=== PATIENT | male | born 1965 | race Caucasian/White ===

== ENCOUNTER 2016-07-05 15:59 | Emergency (ER) | payer BC ==
[2016-07-05 16:12] VITALS: TEMP 99
[2016-07-05] MEDS ORDERED: SODIUM CHLORIDE 0.9% 1,000 ML IV STA ×2 (16:27)
[2016-07-05] MEDS ORDERED: ONDANSETRON 4 MG/2 ML VIAL IVP STA (16:27)
[2016-07-05] MEDS ORDERED: HYDROmorphone 1 MG/ML 1 ML SYRINGE IVP STA (16:27)
[2016-07-05] MEDS ORDERED: RX INFO: IV CONTRAST WAS GIVEN 1 EACH MISC MISCELLANE PRN (16:28)
[2016-07-05 16:56] LABS: Basophils % (A) 0 %; CH 30.7; CHCM 34.7; Eosinophils # (A) 0.3 k/uL (0-0.7); Eosinophils % (A) 2 %; HCT 49.7 % (39.0-53.0); HDW 2.63; HGB 17.1 gm/dL (13.0-17.5); Luc # (Auto) 0.55; Luc % (Auto) 4; Lymphocytes # (A) 1.9 k/uL (1.0-4.8); Lymphocytes % (A) 14 %; MCH 30.7 pg (25.0-35.0); MCHC 34.4 g/dL (31.0-37.0); MCV 89.1 fL (80.0-100.0); Mean Platelet Volume 8.3; Monocytes # (A) 1.1 k/uL (0-1.0); Monocytes % (A) 8 %; Neutrophils % (A) 72 %; RBC 5.58 m/uL (4.30-5.90); RDW 13.8 % (11.5-15.5); WBC 13.9 k/uL (3.8-10.6); WBC (Perox) 14.04
[2016-07-05 17:07] LABS: Amorphous Sediment,Urine Rare /hpf; Appearance,Urine Clear (Clear); Bilirubin,Urine Negative (Negative); Glucose,Urine (UA) Negative (Negative); Ketones,Urine Negative (Negative); Leukocyte Esterase,Urine Negative (Negative); Mucus,Urine Few /hpf; Nitrite,Urine Negative (Negative); PH, Urine 5.5 (5.0-8.0); Particle Count 9377; Protein,Urine 1+ (Negative); RBC,Urine 3 /hpf (0-5); UA Billing (MACRO vs. MICRO) MICRO; WBC,Urine 1 /hpf (0-5)
[2016-07-05 17:22] LABS: ALT 35 U/L (21-72); AST 39 U/L (17-59); Alkaline Phosphatase 69 U/L (38-126); Amylase 49 U/L (30-110); Anion Gap 13 mmol/L; Blood Urea Nitrogen 17 mg/dL (9-20); Calcium 9.3 mg/dL (8.4-10.2); Carbon Dioxide 19 mmol/L (22-30); Chloride 106 mmol/L (98-107); Glucose 143 mg/dL (74-99); Non-African American GFR(MDRD) >60 (>60 ml/min/1.73 sqM); Sodium 138 mmol/L (137-145); Total Bilirubin 0.7 mg/dL (0.2-1.3); Total Protein 7.1 g/dL (6.3-8.2)
[2016-07-05 17:25] LABS: Potassium 4.8 mmol/L (3.5-5.1)
[2016-07-05 17:37] VITALS: PULSE 70; RESP 18
--- NOTE | 2016-07-05 17:42 | CT ---
EXAMINATION TYPE: CT abdomen pelvis w con DATE OF EXAM: 07/05/2016 5:27 PM COMPARISON: NONE HISTORY: Diarrhea and generalized abdominal pain x 3-[address] DLP: 1521.80 mGycm Automated exposure control for dose reduction was used. TECHNIQUE: Helical acquisition of images was performed from the lung bases through the pelvis. CONTRAST: Performed without Oral Contrast and with IV Contrast, patient injected with 100 mL of Omnipaque 300. FINDINGS: Lung bases are clear. There is no pleural effusion. Heart size is normal. Liver spleen pancreas appear normal. There is no adrenal mass. Bile ducts are not dilated. Gallbladde r appears normal. There is normal contrast opacification of the kidneys. There is no hydronephrosis. There is no retroperitoneal adenopathy. There is evidence of wall thickening involving the right colo n and the transverse colon. There are a few sigmoid diverticula. There is no evidence of diverticulit is. There is mild wall thickening also in the terminal ileum. Appendix appears normal. The bladder distends smoothly. I see no bony destructive process. There is no sign of a pelvic mass. IMPRESSION: THERE IS WALL THICKENING INVOLVING THE RIGHT COLON AND DISTAL ILEUM THAT IS SUGGESTIVE OF INFLAMMATOR Y BOWEL DISEASE. NO ABSCESS. NORMAL APPENDIX.
--- NOTE | 2016-07-05 17:47 | ED ---
General Adult HPI - General Chief complaint: Nausea/Vomiting/Diarrhea Stated complaint: Abd Pain Time Seen by Provider: 07/05/16 16:16 Source: patient, family, RN notes reviewed Mode of arrival: ambulatory Limitations: no limitations - History of Present Illness Initial comments: Patient 15-year-old male who presents emergency room today with a chief complaint of symptoms of abdominal pain with nausea and vomiting over the last 4 days. Patient admits to some lower abdominal pain cramping in nature. States that when he states symptoms seem to increase and has increased diarrhea. He denies any other complaints. Patient denies any recent fever, chills, shortness of breath, chest pain, back pain, numbness or tingling, dysuria or hematuria, constipation or diarrhea, headaches or visual changes, or any other complaints. - Related Data Previous Rx's Medication Instructions Recorded Ciprofloxacin HCl [Cipro] 500 mg PO Q12HR #10 day 07/05/16 Allergies Allergy/AdvReac Type Severity Reaction Status Date / Time Penicillins Allergy Unknown Verified 07/05/16 16:08 Review of Systems ROS Statement: Those systems with pertinent positive or pertinent negative responses have been documented in the HPI. ROS Other: All systems not noted in ROS Statement are negative. Past Medical History Past Medical History: Coronary Artery Disease (CAD), Hyperlipidemia, Hypertension History of Any Multi-Drug Resistant Organisms: None Reported Past Surgical History: Coronary Bypass/CABG Past Psychological History: Depression Smoking Status: Current every day smoker Past Alcohol Use History: None Reported Past Drug Use History: None Reported General Exam - General Exam Comments Initial Comments: General: The patient is awake and alert, in no distress, and does not appear acutely ill. Eye: Pupils are equal, round and reactive to light, extra-ocular movements are intact. No nystagmus. There is normal conjunctiva bilaterally. No signs of icterus. Ears, nose, mouth and throat: There are moist mucous membranes and no oral lesions. Neck: The neck is supple, there is no tenderness or JVD. Cardiovascular: There is a regular rate and rhythm. No murmur, rub or gallop is appreciated. Respiratory: Lungs are clear to auscultation, respirations are non-labored, breath sounds are equal. No wheezes, stridor, rales, or rhonchi. Gastrointestinal: Normal appearance them. Normal bowel sounds. Abdomen soft on palpation. Mild tenderness to lower quadrant. No rebound tenderness. No Guarding. No CVA tenderness. Musculoskeletal: Normal ROM, no tenderness. Strength 5/5. Sensation intact. Pulses equal bilaterally 2+. Neurological: A&O x 3. CN II-XII intact, There are no obvious motor or sensory deficits. Coordination appears grossly intact. Speech is normal. Skin: Skin is warm and dry and no rashes or lesions are noted. Psychiatric: Cooperative, appropriate mood & affect, normal judgment. Limitations: no limitations Course Vital Signs 07/05/16 07/05/16 16:08 17:37 Temperature 99 F Pulse Rate 82 70 Respiratory 16 18 Rate Blood Pressure 134/86 142/70 O2 Sat by Pulse 95 99 Oximetry Medical Decision Making - Medical Decision Making Patient denies any recent fever, chills, shortness of breath, chest pain, back pain, abdominal pain, nausea or vomiting, numbness or tingling, dysuria or hematuria, constipation or diarrhea, headaches or visual changes, or any other complaints. - Lab Data Result diagrams: 07/05/16 16:40 07/05/16 16:40 Lab Results 07/05/16 07/05/16 07/05/16 Range/Units 16:40 16:40 16:40 WBC 13.9 H (3.8-10.6) k/uL RBC 5.58 (4.30-5.90) m/uL Hgb 17.1 (13.0-17.5) gm/dL Hct 49.7 (39.0-53.0) % MCV 89.1 (80.0-100.0) fL MCH 30.7 (25.0-35.0) pg MCHC 34.4 (31.0-37.0) g/dL RDW 13.8 (11.5-15.5) % Plt Count 125 L (150-450) k/uL Neutrophils % 72 % Lymphocytes % 14 % Monocytes % 8 % Eosinophils % 2 % Basophils % 0 % Neutrophils # 10.0 H (1.3-7.7) k/uL Lymphocytes # 1.9 (1.0-4.8) k/uL Monocytes # 1.1 H (0-1.0) k/uL Eosinophils # 0.3 (0-0.7) k/uL Basophils # 0.0 (0-0.2) k/uL Sodium 138 (137-145) mmol/L Potassium 4.8 (3.5-5.1) mmol/L Chloride 106 (98-107) mmol/L Carbon Dioxide 19 L (22-30) mmol/L Anion Gap 13 mmol/L BUN 17 (9-20) mg/dL Creatinine 0.80 (0.66-1.25) mg/dL Est GFR (MDRD) Af Amer >60 (>60 ml/min/1.73 sqM) Est GFR (MDRD) Non-Af >60 (>60 ml/min/1.73 sqM) Glucose 143 H (74-99) mg/dL Calcium 9.3 (8.4-10.2) mg/dL Total Bilirubin 0.7 (0.2-1.3) mg/dL AST 39 (17-59) U/L ALT 35 (21-72) U/L Alkaline Phosphatase 69 (38-126) U/L Total Protein 7.1 (6.3-8.2) g/dL Albumin 4.2 (3.5-5.0) g/dL Amylase 49 (30-110) U/L Lipase 109 (23-300) U/L Urine Color Yellow Urine Appearance Clear (Clear) Urine pH 5.5 (5.0-8.0) Ur Specific [place] 1.030 (1.001-1.035) Urine Protein 1+ H (Negative) Urine Glucose (UA) Negative (Negative) Urine Ketones Negative (Negative) Urine Blood Negative (Negative) Urine Nitrite Negative (Negative) Urine Bilirubin Negative (Negative) Urine Urobilinogen 2.0 (<2.0) mg/dL Ur Leukocyte Esterase Negative (Negative) Urine RBC 3 (0-5) /hpf Urine WBC 1 (0-5) /hpf Amorphous Sediment Rare H (None) /hpf Hyaline Casts 4 H (0-2) /lpf Urine Mucus Few H (None) /hpf Disposition Clinical Impression: Colitis Disposition: HOME SELF-CARE Condition: Good Instructions: Colitis (ED) Additional Instructions: Patient's CT of the abdomen and pelvis reviewed and does show wall thickening involving the right colon and distal ileum that is suggestive of inflammatory bowel disease. No abscess. Normal appendix. No evidence for diverticulitis. Patient's labs reviewed and does show elevated white count 13.9. Patient denies any recent travel. Patient will be started on a antibiotic of Cipro. He is advised close follow-up with the family doctor over the next 2 days. Advised return to emergency room if any symptoms increase or worsen or for any other concerns. Patient states understanding and is in agreement. Prescriptions: Ciprofloxacin HCl [Cipro] 500 mg PO Q12HR #10 day Referrals: Ernesto Hinojosa MD [Primary Care Provider] - 1-2 days Time of Disposition: 18:06
[2016-07-05 18:07] VITALS: BP 140/79
== END 2016-07-05 18:15 | disposition home or self-care (01) ==
LOC: EC 15:59
DX: K52.9 Noninfective gastroenteritis and colitis, unspecified (principal); R11.2 Nausea with vomiting, unspecified; F17.200 Nicotine dependence, unspecified, uncomplicated; Z88.0 Allergy status to penicillin
CPT/HCPCS: 36415; 80053; 82150; 83690; 85025; 81001; 74177; 99284; 96374; 96375; 96361; J2405; J1170; Q9967

== ENCOUNTER 2016-09-27 14:08 | Inpatient (IN) | payer BC ==
[2016-09-27] MEDS ORDERED: ASPIRIN 81 MG CHEW PO STA (14:29)
[2016-09-27] MEDS ORDERED: NITROGLYCERIN OINT 1 INCH/GM PACKET TOPICAL STA (14:29)
--- NOTE | 2016-09-27 14:33 | ED ---
General Adult HPI - General Chief complaint: Chest Pain Stated complaint: chest pain Time Seen by Provider: 09/27/16 14:20 Source: patient, RN notes reviewed Mode of arrival: ambulatory Limitations: no limitations - History of Present Illness Initial comments: This is a 51-year-old male who presents emergency department with past medical history of hypertension high cholesterol and bypass surgery. Patient also states she continues to smoke. Patient comes in today because he had a weeklong history of intermittent chest pressure patient states it lasts about an hour and then goes away. Patient states it does seem to get some radiation to his hands. Patient states he also had some episodes of significant diaphoresis. Patient states the symptoms are getting worse we decided come in today. Patient denies any lightheadedness dizziness or near syncopal episode. Patient denies any numbness or weakness. Patient denies any palpitations. Patient denies being short of breath or having any difficulty breathing. Patient denies abdominal pain patient denies nausea vomiting or diarrhea. Patient denies any recent fever chills or cough. - Related Data Home Medications Medication Instructions Recorded Confirmed Aspirin EC [Ecotrin Low Dose] 81 mg PO ONCE PRN 09/27/16 09/27/16 Enalapril [Vasotec] 10 mg PO BID@0700,1900 09/27/16 09/27/16 Ezetimibe [Zetia] 10 mg PO HS@1900 09/27/16 09/27/16 Metoprolol Succinate (ER) [Toprol 100 mg PO BID@0700,1900 09/27/16 09/27/16 Xl] Simvastatin [Zocor] 40 mg PO DAILY@0700 09/27/16 09/27/16 Allergies Allergy/AdvReac Type Severity Reaction Status Date / Time Penicillins Allergy Unknown Verified 09/27/16 14:38 Childhood Review of Systems ROS Statement: Those systems with pertinent positive or pertinent negative responses have been documented in the HPI. ROS Other: All systems not noted in ROS Statement are negative. Past Medical History Past Medical History: Coronary Artery Disease (CAD), Hyperlipidemia, Hypertension History of Any Multi-Drug Resistant Organisms: None Reported Past Surgical History: Coronary Bypass/CABG Past Psychological History: Depression Smoking Status: Current every day smoker Past Alcohol Use History: None Reported Past Drug Use History: None Reported General Exam - General Exam Comments Initial Comments: GENERAL: Patient is well-developed and well-nourished. Patient is nontoxic and well- hydrated and is in no acute distress. ENT: Neck is soft and supple. No significant lymphadenopathy is noted. Oropharynx is clear. Moist mucous membranes. Neck has full range of motion without eliciting any pain. EYES: The sclera were anicteric and conjunctiva were pink and moist. Extraocular movements were intact and pupils were equal round and reactive to light. Eyelids were unremarkable. PULMONARY: Unlabored respirations. Good breath sounds bilaterally. No audible rales rhonchi or wheezing was noted. CARDIOVASCULAR: There is a regular rate and rhythm without any murmurs gallops or rubs. ABDOMEN: Soft and nontender with normal bowel sounds. No palpable organomegaly was noted. There is no palpable pulsatile mass. SKIN: Skin is clear with no lesions or rashes and otherwise unremarkable. NEUROLOGIC: Patient is alert and oriented x3. Cranial nerves II through XII are grossly intact. Motor and sensory are also intact. Normal speech, volume and content. Symmetrical smile. MUSCULOSKELETAL: Normal extremities with adequate strength and full range of motion. No lower extremity swelling or edema. No calf tenderness. LYMPHATICS: No significant lymphadenopathy is noted PSYCHIATRIC: Normal psychiatric evaluation. Normal interpersonal interactions appears functionally intact in deals appropriately with others. No signs of depression. No signs of anxiety. Limitations: no limitations Course Vital Signs 09/27/16 09/27/16 09/27/16 14:18 14:38 14:46 Temperature 97.9 F Pulse Rate 82 83 Respiratory 18 18 18 Rate Blood Pressure 168/88 161/80 O2 Sat by Pulse 96 96 Oximetry 09/27/16 15:17 Temperature Pulse Rate 82 Respiratory 18 Rate Blood Pressure 149/71 O2 Sat by Pulse 95 Oximetry Medical Decision Making - Medical Decision Making EKG shows normal sinus rhythm at 70 bpm ME interval is on a 48 QRS is 94 QT interval 384 QTC is 437 per patient's EKG shows no ST segment elevation or depression or T-wave abnormalities are noted Chest x-ray shows no acute abnormality. I placed the patient on heparin. I spoke with Dr. Hodges admitted the patient I wrote admitting orders to continue the heparin and aspirin and Nitropaste on the floor. - Lab Data Result diagrams: 09/27/16 14:38 09/27/16 14:38 Lab Results 09/27/16 09/27/16 09/27/16 Range/Units 14:38 14:38 14:38 WBC 10.7 H (3.8-10.6) k/uL RBC 5.48 (4.30-5.90) m/uL Hgb 16.7 (13.0-17.5) gm/dL Hct 50.5 (39.0-53.0) % MCV 92.0 (80.0-100.0) fL MCH 30.5 (25.0-35.0) pg MCHC 33.2 (31.0-37.0) g/dL RDW 14.9 (11.5-15.5) % Plt Count 127 L (150-450) k/uL Neutrophils % 55 % Lymphocytes % 30 % Monocytes % 8 % Eosinophils % 3 % Basophils % 1 % Neutrophils # 5.9 (1.3-7.7) k/uL Lymphocytes # 3.1 (1.0-4.8) k/uL Monocytes # 0.8 (0-1.0) k/uL Eosinophils # 0.3 (0-0.7) k/uL Basophils # 0.1 (0-0.2) k/uL PT (9.0-12.0) sec INR (<1.2) APTT (22.0-30.0) sec Sodium 139 (137-145) mmol/L Potassium 4.1 (3.5-5.1) mmol/L Chloride 106 (98-107) mmol/L Carbon Dioxide 20 L (22-30) mmol/L Anion Gap 13 mmol/L BUN 20 (9-20) mg/dL Creatinine 0.80 (0.66-1.25) mg/dL Est GFR (MDRD) Af Amer >60 (>60 ml/min/1.73 sqM) Est GFR (MDRD) Non-Af >60 (>60 ml/min/1.73 sqM) Glucose 131 H (74-99) mg/dL Calcium 9.4 (8.4-10.2) mg/dL Magnesium 1.9 (1.6-2.3) mg/dL Total Bilirubin 0.4 (0.2-1.3) mg/dL AST 38 (17-59) U/L ALT 51 (21-72) U/L Alkaline Phosphatase 76 (38-126) U/L Total Creatine Kinase 235 H (55-170) U/L CK-MB (CK-2) 3.3 H* (0.0-2.4) ng/mL CK-MB (CK-2) Rel Index 1.4 Troponin I <0.012 (0.000-0.034) ng/mL Total Protein 6.9 (6.3-8.2) g/dL Albumin 4.4 (3.5-5.0) g/dL 09/27/16 Range/Units 14:38 WBC (3.8-10.6) k/uL RBC (4.30-5.90) m/uL Hgb (13.0-17.5) gm/dL Hct (39.0-53.0) % MCV (80.0-100.0) fL MCH (25.0-35.0) pg MCHC (31.0-37.0) g/dL RDW (11.5-15.5) % Plt Count (150-450) k/uL Neutrophils % % Lymphocytes % % Monocytes % % Eosinophils % % Basophils % % Neutrophils # (1.3-7.7) k/uL Lymphocytes # (1.0-4.8) k/uL Monocytes # (0-1.0) k/uL Eosinophils # (0-0.7) k/uL Basophils # (0-0.2) k/uL PT 10.4 (9.0-12.0) sec INR 1.0 (<1.2) APTT 23.4 (22.0-30.0) sec Sodium (137-145) mmol/L Potassium (3.5-5.1) mmol/L Chloride (98-107) mmol/L Carbon Dioxide (22-30) mmol/L Anion Gap mmol/L BUN (9-20) mg/dL Creatinine (0.66-1.25) mg/dL Est GFR (MDRD) Af Amer (>60 ml/min/1.73 sqM) Est GFR (MDRD) Non-Af (>60 ml/min/1.73 sqM) Glucose (74-99) mg/dL Calcium (8.4-10.2) mg/dL Magnesium (1.6-2.3) mg/dL Total Bilirubin (0.2-1.3) mg/dL AST (17-59) U/L ALT (21-72) U/L Alkaline Phosphatase (38-126) U/L Total Creatine Kinase (55-170) U/L CK-MB (CK-2) (0.0-2.4) ng/mL CK-MB (CK-2) Rel Index Troponin I (0.000-0.034) ng/mL Total Protein (6.3-8.2) g/dL Albumin (3.5-5.0) g/dL Critical Care Time Critical Care Time: Yes Total Critical Care Time: 35 Disposition Clinical Impression: Unstable angina pectoris Disposition: ADMITTED IP TO THIS HOSP Referrals: Ernesto Hinojosa MD [Primary Care Provider] - 1-2 days Time of Disposition: 15:54
[2016-09-27 14:50] LABS: Basophils # (A) 0.1 k/uL (0-0.2); Basophils % (A) 1 %; CH 31.3; CHCM 34.2; Eosinophils # (A) 0.3 k/uL (0-0.7); Eosinophils % (A) 3 %; HCT 50.5 % (39.0-53.0); HDW 2.45; HGB 16.7 gm/dL (13.0-17.5); Luc # (Auto) 0.45; Luc % (Auto) 4; Lymphocytes # (A) 3.1 k/uL (1.0-4.8); Lymphocytes % (A) 30 %; MCH 30.5 pg (25.0-35.0); MCHC 33.2 g/dL (31.0-37.0); Mean Platelet Volume 9.3; Monocytes # (A) 0.8 k/uL (0-1.0); Monocytes % (A) 8 %; Neutrophils # (A) 5.9 k/uL (1.3-7.7); Neutrophils % (A) 55 %; RBC 5.48 m/uL (4.30-5.90); RDW 14.9 % (11.5-15.5); WBC 10.7 k/uL (3.8-10.6); WBC (Perox) 9.96
[2016-09-27 15:00] LABS: ALT 51 U/L (21-72); AST 38 U/L (17-59); Alkaline Phosphatase 76 U/L (38-126); Anion Gap 13 mmol/L; Blood Urea Nitrogen 20 mg/dL (9-20); Calcium 9.4 mg/dL (8.4-10.2); Carbon Dioxide 20 mmol/L (22-30); Chloride 106 mmol/L (98-107); Glucose 131 mg/dL (74-99); Magnesium 1.9 mg/dL (1.6-2.3); Non-African American GFR(MDRD) >60 (>60 ml/min/1.73 sqM); Partial Thromboplastin Time 23.4 sec (22.0-30.0); Potassium 4.1 mmol/L (3.5-5.1); Prothrombin Time 10.4 sec (9.0-12.0); Sodium 139 mmol/L (137-145); Total Bilirubin 0.4 mg/dL (0.2-1.3); Total Protein 6.9 g/dL (6.3-8.2)
[2016-09-27 15:13] LABS: Creatine Kinase 235 U/L (55-170)
--- NOTE | 2016-09-27 15:18 | XR ---
EXAMINATION TYPE: XR chest 2V DATE OF EXAM: 09/27/2016 COMPARISON: Prior chest x-ray 05/14/2014 HISTORY: Chest pain TECHNIQUE: Frontal and lateral views of the chest are obtained. FINDINGS: There is no focal air space opacity, pleural effusion, or pneumothorax seen. Patient is p ost median sternotomy. There are overlying cardiac leads. Prominent lung volume may be indicative of COPD. There are coronary artery calcifications. The cardiac silhouette size is within normal limits. The osseous structures are intact. IMPRESSION: No acute cardiopulmonary process.
[2016-09-27 15:25] LABS: Troponin I <0.012 ng/mL (0.000-0.034)
[2016-09-27 15:28] LABS: Creatine Kinase MB 3.3 ng/mL (0.0-2.4)
[2016-09-27] MEDS ORDERED: HEPARIN SODIUM,PORCINE 5,000 UNIT/ML 1 ML VIAL IV ONE (15:54)
[2016-09-27] MEDS ORDERED: NITROGLYCERIN SL TABS 0.4 MG TAB SUBLINGUAL PRN (15:56)
[2016-09-27] MEDS: HEPARIN SODIUM,PORCINE/D5W PMX 25,000 UNIT in DEXTROSE/WATER 1 500ML.BAG IV SCH (16:38)
[2016-09-27 17:15] VITALS: BMI 36.1
[2016-09-27] MEDS: METOPROLOL SUCCINATE (ER) 100 MG TAB.ER.24H PO SCH (18:45)
[2016-09-27] MEDS: EZETIMIBE 10 MG TAB PO SCH (18:45)
[2016-09-27 22:09] LABS: Creatine Kinase 169 U/L (55-170)
[2016-09-27 22:21] LABS: Troponin I <0.012 ng/mL (0.000-0.034)
[2016-09-27 22:24] LABS: Creatine Kinase MB 2.6 ng/mL (0.0-2.4)
[2016-09-28 04:54] LABS: Creatine Kinase 149 U/L (55-170)
[2016-09-28 05:07] LABS: Troponin I <0.012 ng/mL (0.000-0.034)
[2016-09-28 05:10] LABS: Cholesterol 123 mg/dL (<200); HDL Cholesterol 40 mg/dL (40-60)
[2016-09-28 05:11] LABS: Creatine Kinase MB 2.5 ng/mL (0.0-2.4)
[2016-09-28] MEDS ORDERED: ATORVASTATIN 80 MG TAB PO STA (08:54)
[2016-09-28] MEDS ORDERED: SODIUM CHLORIDE 0.9% 1,000 ML in EMPTY BAG 1 BAG IV ONE ×2 (08:54→13:57)
[2016-09-28] MEDS ORDERED: ASPIRIN 325 MG TAB PO STA (08:54)
[2016-09-28] MEDS ORDERED: NITROGLYCERIN SL TABS 0.4 MG TAB SUBLINGUAL PRN (08:54)
[2016-09-28] MEDS: LISINOPRIL 20 MG TAB PO SCH (09:03)
[2016-09-28] MEDS: METOPROLOL SUCCINATE (ER) 100 MG TAB.ER.24H PO SCH ×2 (09:03→20:03)
[2016-09-28 09:06] LABS: Aty Lym Flag Slight; CHCM 32.7; HCT 47.7 % (39.0-53.0); HDW 2.46; MCH 30.9 pg (25.0-35.0); MCHC 33.6 g/dL (31.0-37.0); MCV 92.2 fL (80.0-100.0); Mean Platelet Volume 9.8; RBC 5.18 m/uL (4.30-5.90); RDW 14.1 % (11.5-15.5); WBC 9.4 k/uL (3.8-10.6); WBC (Perox) 9.14
[2016-09-28 09:07] LABS: ALT 45 U/L (21-72); AST 29 U/L (17-59); Alkaline Phosphatase 76 U/L (38-126); Anion Gap 8 mmol/L; Blood Urea Nitrogen 19 mg/dL (9-20); Carbon Dioxide 24 mmol/L (22-30); Chloride 106 mmol/L (98-107); Glucose 106 mg/dL (74-99); Non-African American GFR(MDRD) >60 (>60 ml/min/1.73 sqM); Potassium 4.7 mmol/L (3.5-5.1); Sodium 138 mmol/L (137-145); Total Bilirubin 0.3 mg/dL (0.2-1.3); Total Protein 5.9 g/dL (6.3-8.2)
[2016-09-28] MEDS ORDERED: IV FLUID CONTINUATION 1,000 ML IV ONE (09:20)
[2016-09-28 09:41] LABS: Add Differential Manual Differential
[2016-09-28 09:47] LABS: Nucleated Red Blood Cells 0 /100 WBC (0-0); Total Cells Counted 100
[2016-09-28 09:49] LABS: Manual Review Performed; RBC Morphology Normal
[2016-09-28] MEDS ORDERED: fentaNYL (PF) 50 MCG/ML 2 ML AMP IV ONE (10:08)
[2016-09-28] MEDS: MIDAZOLAM 2 MG/2 ML VIAL IV ONE ×2 (10:09→10:54)
[2016-09-28] MEDS ORDERED: LIDOCAINE 2% INJ 20 MG/ML SQ ONE (10:13)
[2016-09-28] MEDS ORDERED: NITROGLYCERIN SL TABS 0.4 MG TAB SUBLINGUAL ONE (10:28)
[2016-09-28] MEDS ORDERED: RX INFO: IV CONTRAST WAS GIVEN 1 EACH MISC MISCELLANE PRN (11:23)
--- NOTE | 2016-09-28 11:24 | P.HPIM ---
History of Present Illness H&P Date: 09/28/16 Chief Complaint: Chest pain This is a 51-year-old male with a known history of coronary disease with previous coronary bypass grafting surgery, hyperlipidemia, hypertension and nicotine dependence. Patient presents to the emergency room with intermittent chest pressure for the past week. Patient reports that symptoms may last for about 15 minutes he stands up and stretches and they go away. He has had some episodes of diaphoresis. He also reports having some numbness in both arms at times with the chest pressure. He denies any dizziness lightheadedness, any fevers or chills. Denies any cough, denies any nausea or vomiting. Denies any bowel movement changes or urinary symptoms. Patient has been admitted to the observation unit, cardiology has been consult was any scheduled for heart catheterization today. Troponins are negative 3 EKG normal sinus rhythm and chest x-rays negative. Review of Systems Please refer to HPI otherwise unremarkable Past Medical History Past Medical History: Coronary Artery Disease (CAD), Hyperlipidemia, Hypertension History of Any Multi-Drug Resistant Organisms: None Reported Past Surgical History: Coronary Bypass/CABG Additional Past Surgical History / Comment(s): 4 vessel CABG- 2011? Past Psychological History: Anxiety, Depression Smoking Status: Current every day smoker Past Alcohol Use History: None Reported Additional Past Alcohol Use History / Comment(s): pt states he smokes about 6 cigs a day. Past Drug Use History: None Reported - Past Family History Mother Family Medical History: Coronary Artery Disease (CAD), Diabetes Mellitus Father Family Medical History: Coronary Artery Disease (CAD) Medications and Allergies Home Medications Medication Instructions Recorded Confirmed Type Aspirin EC [Ecotrin Low Dose] 81 mg PO ONCE PRN 09/27/16 09/27/16 History Enalapril [Vasotec] 10 mg PO BID@0700,1900 09/27/16 09/27/16 History Ezetimibe [Zetia] 10 mg PO HS@189909/27/16 09/27/16 History Metoprolol Succinate (ER) [Toprol 100 mg PO BID@0700,1900 09/27/16 09/27/16 History Xl] Simvastatin [Zocor] 40 mg PO DAILY@0700 09/27/16 09/27/16 History Allergies Allergy/AdvReac Type Severity Reaction Status Date / Time Penicillins Allergy Unknown Verified 09/27/16 14:38 Childhood Physical Exam Vitals: Vital Signs Temp Pulse Pulse Resp BP BP Pulse Ox 09/28/16 09:13 98 F 62 16 138/85 95 09/28/16 07:57 98.6 F 68 16 138/85 95 09/28/16 04:00 63 16 116/71 98 09/28/16 03:28 74 16 09/28/16 00:00 98.5 F 66 16 136/71 96 09/27/16 20:00 98.1 F 65 16 106/64 98 09/27/16 17:37 69 12 09/27/16 17:05 98.3 F 69 12 118/69 94 L 09/27/16 16:44 98.0 F 74 18 139/67 95 09/27/16 15:47 80 18 142/59 96 09/27/16 15:17 82 18 149/71 95 09/27/16 14:46 83 18 161/80 96 09/27/16 14:38 18 09/27/16 14:18 97.9 F 82 18 168/88 96 Intake and Output 09/27/16 09/28/16 09/28/16 22:59 06:59 14:59 Intake Total 113.667 Balance 113.667 Intake: Intake, IV Titration 113.667 Amount Heparin Sodium,Porcine/ 113.667 D5w Pmx 25,000 unit In Dextrose/Water 1 500ml. bag @ 9 UNITS/KG/HR 20 mls/hr IV .Q24H [facility] Rx#: [id number] Other: Voiding Method Toilet Toilet Toilet # Voids 2 1 # Bowel Movements 1 Weight 109.5 kg Head normocephalic Neck supple Lungs clear to auscultation bilaterally no wheezing or crackles Heart regular rate and rhythm S1-S2, no rub or gallop Abdomen is soft nontender nondistended positive bowel sounds no hepatosplenomegaly Extremities no edema Neuro alert and orientated to 3 Results CBC & Chem 7: 09/28/16 03:39 09/28/16 03:39 Labs: Abnormal Lab Results - Last 24 Hours (Table) 09/27/16 09/27/16 09/27/16 Range/Units 14:38 14:38 14:38 WBC 10.7 H (3.8-10.6) k/uL Plt Count 127 L (150-450) k/uL APTT (22.0-30.0) sec Carbon Dioxide 20 L (22-30) mmol/L Glucose 131 H (74-99) mg/dL Total Creatine Kinase 235 H (55-170) U/L CK-MB (CK-2) 3.3 H* (0.0-2.4) ng/mL Total Protein (6.3-8.2) g/dL Triglycerides (<150) mg/dL 09/27/16 09/27/16 09/28/16 Range/Units 21:31 21:31 03:39 WBC (3.8-10.6) k/uL Plt Count (150-450) k/uL APTT 43.9 H (22.0-30.0) sec Carbon Dioxide (22-30) mmol/L Glucose (74-99) mg/dL Total Creatine Kinase (55-170) U/L CK-MB (CK-2) 2.6 H* 2.5 H* (0.0-2.4) ng/mL Total Protein (6.3-8.2) g/dL Triglycerides (<150) mg/dL 09/28/16 09/28/16 09/28/16 Range/Units 03:39 03:39 03:39 WBC (3.8-10.6) k/uL Plt Count 115 L (150-450) k/uL APTT 48.5 H (22.0-30.0) sec Carbon Dioxide (22-30) mmol/L Glucose (74-99) mg/dL Total Creatine Kinase (55-170) U/L CK-MB (CK-2) (0.0-2.4) ng/mL Total Protein (6.3-8.2) g/dL Triglycerides 185 H (<150) mg/dL 09/28/16 Range/Units 03:39 WBC (3.8-10.6) k/uL Plt Count (150-450) k/uL APTT (22.0-30.0) sec Carbon Dioxide (22-30) mmol/L Glucose 106 H (74-99) mg/dL Total Creatine Kinase (55-170) U/L CK-MB (CK-2) (0.0-2.4) ng/mL Total Protein 5.9 L (6.3-8.2) g/dL Triglycerides (<150) mg/dL Thrombosis Risk Factor Assmnt - Choose All That Apply Any of the Below Risk Factors Present?: Yes Each Factor Represents 1 point: Age 41-60 years, Obesity (BMI >25) Other Risk Factors: No Other congenital or acquired thrombophilia - If yes, enter type in comment: No Thrombosis Risk Factor Assessment Total Risk Factor Score: 2 Thrombosis Risk Factor Assessment Level: Low Risk Assessment and Plan Plan: 1. Chest pain: Patient scheduled for heart catheterization today. Chest x- rays negative. EKG normal sinus rhythm troponins are negative 3. Cardiology increased aspirin to a full 325 mg daily and give 1 dose of this Lipitor 80. Patient started on IV heparin in the emergency room 2. Essential hypertension: Blood pressure stable 3. Hyperlipidemia continue Lipitor 4. History of coronary artery disease and previous coronary bypass surgery 5. Nicotine dependence: Discussed smoking cessation. Patient received nicotine patch. He smokes about 6-8 cigarettes a day DVT prophylaxis subcu heparin Time with Patient: Greater than 30 (Greater than 50% of the total time spent in counseling and coordination of care.I performed an examination of the patient and discussed their management with the physician Curtain Roller Assembler. I have reviewed the Physician Curtain Roller Assembler's notes and agree with the documented findings and plan of care)
[2016-09-28] MEDS ORDERED: IOHEXOL 350 MG/ML 125ML BOTTLE INJ ONE (11:29)
--- NOTE | 2016-09-28 11:36 | P.PCN ---
Date of Procedure: 09/28/16 Preoperative Diagnosis: Unstable angina Postoperative Diagnosis: Diffuse coronary artery disease with a critical lesions in the midcircumflex and also first diagonal Procedure(s) Performed: Left heart catheterization with aortography and also selective injection of the 3 vein grafts and also PRIDE graft. Implants: Indications for Procedure: Operative Findings: Description of Procedure: HISTORY: This is a 51-year-old gentleman with history of ischemic heart disease with a previous stent placement of the left anterior descending and also circumflex who had coronary bypass surgery in 2011 because of significant proximal LAD lesion, significant disease involving the distal LAD and also total of RCA. Patient presumably had five-vessel bypass with PRIDE graft to the mid LAD and a vein graft to the distal LAD, vein graft to the distal circumflex , vein graft to the intermediate and also vein graft to the RCA. Patient is now admitted to the hospital with chest pain sized for burning sensation. EKGs were negative and cardiac enzymes are negative. Patient is advised to have cardiac catheterization for definitive diagnosis. He was explained the risks and benefits of the procedure which she fully understood and accepted CONSENT:I have discussed the risks, benefits and alternative therapies for the above-mentioned procedure and for both sedation/analgesia as well as necessary blood product administration, if indicated, as they pertain to this patient. The patient has indicated understanding and acceptance of the risks and procedures discussed. PROCEDURE: Patient was brought to the lab in a fasting state. Patient was given some IV sedation. The right groin is infiltrated with lidocaine and right femoral artery was entered using Seldinger technique. A 6-Czech catheter was left in place and selective coronary arteriography and left ventriculography was performed. Patient tolerated the procedure well. Femoral angiogram was performed and Angio-Seal was applied for hemostasis. No immediate complications were noted and patient was transferred to [facility] in a stable condition Conscious Sedation: Versed : 2 mg mg Fentanyl : 50 g Duration 50 minutes HEMODYNAMICS: The aortic pressure is about 160/90. Left ankle end-diastolic pressures were not measured SELECTIVE CORONARY ARTERIOGRAPHY: LEFT MAIN: Normal length and patent THE LEFT ANTERIOR DESCENDING CORONARY ARTERY: . Good caliber vessel with a 60-70% proximal LAD lesion. There is a PRIDE graft to the LAD which seemed to be functioning normally. There is a moderate small to moderate caliber diagonal branch which has about 90% stenosis. THE LEFT CIRCUMFLEX AND IS CORONARY ARTERY: Fairly caliber vessel with a diffuse disease in the midportion with about 80-90% stenosis in midportion within the stented area. His near total occluded in the distal portion THE RIGHT CORONARY ARTERY: 100% occluded proximally. THE VEIN GRAFT TO THE RCA: This is patent both in the proximal and distal anastomotic site and also throughout the body. THE VEIN GRAFT TO THE CIRCUMFLEX: This is patent at the proximal and distal anastomosis and throat its length. The distal circumflex consists of a PLV branch which is seemed to be patent. However, there is no retrograde flow into the distal circumflex. The vein graft to the INTERMEDIATE: This could not be selectively studied and presumed to be totally occluded. THE PRIDE GRAFT TO THE LAD: This is patent throat its length and also released anastomosis. The LAD beyond the ostomy site appears to be patent. THE AORTIC ROOT INJECTION: This is performed in the 30 left and oblique projection which revealed mildly dilated aortic root with evidence about 2+ regurgitation. Could not find any patent grafts except RCA. LEFT VENTRICULOGRAPHY: Not performed FINAL IMPRESSION: Diffuse coronary artery disease with critical lesion in the midcircumflex and also diagonal branch. The right is totally occluded. The vein graft to the RCA and circumflex are patent. The PRIDE graft to the LAD is patent. The vein graft to the intermediate is presumed to be typical occluded PLAN: Maximum medical therapy. Stent placement of the circumflex and the diagonal to be considered. Dr. MARCELO Rachel's evaluating the patient PROGNOSIS: fair
--- NOTE | 2016-09-28 11:48 | P.CRDCN ---
History of Present Illness Consult date: 09/28/16 History of present illness: This is a 51-year-old male. Past medical history significant for CAD with 4 vessel CABG, hypertension, hyperlipidemia and chronic daily tobacco abuse. Patient presents with complaints of burning across the chest associated with diaphoresis and numbness and tingling in the fingers and toes at rest. He states this has been ongoing and intermittent over the previous few days. He states that pain/burning in his chest gets better when he gets up and starts moving around. He denies upper palpitations, dizziness or nausea/vomiting. The patient sees Dr. MARCELO Rachel as an outpatient. His last appointment was approximately 3 years ago. His states he has been increasingly fatigued over the previous months she has noticed. His CABG was in April 2010 with PRIDE to proximal LAD, SVG to distal LAD, SVG to ramus, SVG to distal circumflex, and SVG to distal RCA. He had an exercise stress test in 2013 which showed no stress-induced ischemia. EKG done shows normal sinus mechanism, rate of 78 beats per minute with no T- wave abnormality. When compared with old EKG this appears consistent. WBC count 10.7 platelets 127 hemoglobin 16.7 potassium 4.1 BUN 20 creatinine 0.8 troponin negative 3 triglycerides 185 total cholesterol 123 LDL 46 HDL 40. Chest x-ray showed no acute cardiopulmonary process. Review of Systems Review of systems normal except what was discussed in my HPI. Past Medical History Past Medical History: Coronary Artery Disease (CAD), Hyperlipidemia, Hypertension History of Any Multi-Drug Resistant Organisms: None Reported Past Surgical History: Coronary Bypass/CABG Additional Past Surgical History / Comment(s): 4 vessel CABG- 2011? Past Psychological History: Anxiety, Depression Smoking Status: Current every day smoker Past Alcohol Use History: None Reported Additional Past Alcohol Use History / Comment(s): pt states he smokes about 6 cigs a day. Past Drug Use History: None Reported - Past Family History Mother Family Medical History: Coronary Artery Disease (CAD), Diabetes Mellitus Father Family Medical History: Coronary Artery Disease (CAD) Medications and Allergies Home Medications Medication Instructions Recorded Confirmed Type Aspirin EC [Ecotrin Low Dose] 81 mg PO ONCE PRN 09/27/16 09/27/16 History Enalapril [Vasotec] 10 mg PO BID@0700,1900 09/27/16 09/27/16 History Ezetimibe [Zetia] 10 mg PO HS@1900 09/27/16 09/27/16 History Metoprolol Succinate (ER) [Toprol 100 mg PO BID@0700,1900 09/27/16 09/27/16 History Xl] Simvastatin [Zocor] 40 mg PO DAILY@0700 09/27/16 09/27/16 History Allergies Allergy/AdvReac Type Severity Reaction Status Date / Time Penicillins Allergy Unknown Verified 09/27/16 14:38 Childhood Physical Exam Vitals: Vital Signs Temp Pulse Pulse Resp BP BP Pulse Ox 09/28/16 07:57 98.6 F 68 16 138/85 95 09/28/16 04:00 63 16 116/71 98 09/28/16 03:28 74 16 09/28/16 00:00 98.5 F 66 16 136/71 96 09/27/16 20:00 98.1 F 65 16 106/64 98 09/27/16 17:37 69 12 09/27/16 17:05 98.3 F 69 12 118/69 94 L 09/27/16 16:44 98.0 F 74 18 139/67 95 09/27/16 15:47 80 18 142/59 96 09/27/16 15:17 82 18 149/71 95 09/27/16 14:46 83 18 161/80 96 09/27/16 14:38 18 09/27/16 14:18 97.9 F 82 18 168/88 96 Intake and Output 09/27/16 09/28/16 09/28/16 22:59 06:59 14:59 Intake Total 113.667 Balance 113.667 Intake: Intake, IV Titration 113.667 Amount Heparin Sodium,Porcine/ 113.667 D5w Pmx 25,000 unit In Dextrose/Water 1 500ml. bag @ 9 UNITS/KG/HR 20 mls/hr IV .Q24H [facility] Rx#: [id number] Other: Voiding Method Toilet Toilet Toilet # Voids 2 1 # Bowel Movements 1 Weight 109.5 kg GENERAL: This is a 51-year-old male in no apparent distress at the time of my examination. HEENT: Head is atraumatic, normocephalic. Pupils are equal, round. Sclerae anicteric. Conjunctivae are clear. Mucous membranes of the mouth are moist. Neck is supple. There is no jugular venous distention. No carotid bruit is heard. LUNGS: Clear to auscultation no wheezes, rales or rhonchi. No chest wall tenderness is noted on palpation or with deep breathing. HEART: Regular rate and rhythm without murmurs, rubs or gallops. S1 and S2 heard. ABDOMEN: Soft, nontender. Bowel sounds are heard. No organomegaly noted. EXTREMITIES: 2+ peripheral pulses with no evidence of peripheral edema and no calf tenderness noted. NEUROLOGIC: Patient is awake, alert and oriented x3. Results 09/28/16 03:39 09/28/16 03:39 Cardiac Enzymes 09/27/16 09/27/16 09/27/16 Range/Units 14:38 14:38 21:31 AST 38 (17-59) U/L CK-MB (CK-2) 3.3 H* 2.6 H* (0.0-2.4) ng/mL Troponin I <0.012 <0.012 (0.000-0.034) ng/mL 09/28/16 Range/Units 03:39 AST (17-59) U/L CK-MB (CK-2) 2.5 H* (0.0-2.4) ng/mL Troponin I <0.012 (0.000-0.034) ng/mL Coagulation 09/27/16 09/27/16 09/28/16 Range/Units 14:38 21:31 03:39 PT 10.4 (9.0-12.0) sec APTT 23.4 43.9 H 48.5 H (22.0-30.0) sec Lipids 09/28/16 Range/Units 03:39 Triglycerides 185 H (<150) mg/dL Cholesterol 123 (<200) mg/dL HDL Cholesterol 40 (40-60) mg/dL CBC 09/27/16 Range/Units 14:38 WBC 10.7 H (3.8-10.6) k/uL RBC 5.48 (4.30-5.90) m/uL Hgb 16.7 (13.0-17.5) gm/dL Hct 50.5 (39.0-53.0) % Plt Count 127 L (150-450) k/uL Comprehensive Metabolic Panel 09/27/16 Range/Units 14:38 Sodium 139 (137-145) mmol/L Potassium 4.1 (3.5-5.1) mmol/L Chloride 106 (98-107) mmol/L Carbon Dioxide 20 L (22-30) mmol/L BUN 20 (9-20) mg/dL Creatinine 0.80 (0.66-1.25) mg/dL Glucose 131 H (74-99) mg/dL Calcium 9.4 (8.4-10.2) mg/dL AST 38 (17-59) U/L ALT 51 (21-72) U/L Alkaline Phosphatase 76 (38-126) U/L Total Protein 6.9 (6.3-8.2) g/dL Albumin 4.4 (3.5-5.0) g/dL Current Medications Generic Name Dose Route Start Last Admin Trade Name Freq PRN Reason Stop Dose Admin Aspirin 325 mg 09/28/16 09:00 Aspirin PO DAILY [facility] Atorvastatin Calcium 20 mg 09/28/16 07:00 Lipitor PO DAILY@0700 [facility] Ezetimibe 10 mg 09/27/16 19:00 09/27/16 18:45 Zetia PO 10 mg HS@1900 [facility] Administration Heparin Sodium/Dextrose 25,000 500 mls @ 20 mls/hr 09/27/16 16:00 09/27/16 22 :19 unit/ IV Solution IV 11.96 units/kg/hr .Q24H [facility] 26.6 mls/hr Protocol Titration 9 UNITS/KG/HR Lisinopril 40 mg 09/28/16 09:00 Zestril PO DAILY [facility] Metoprolol Succinate 100 mg 09/27/16 19:00 09/27/16 18:45 Toprol Xl PO 100 mg BID@0700,1900 [facility] Administration Nitroglycerin 0.4 mg 09/27/16 15:56 Nitrostat SUBLINGUAL Q5M PRN Chest Pain Intake and Output 09/27/16 09/28/16 09/28/16 22:59 06:59 14:59 Intake Total 113.667 Balance 113.667 Intake: Intake, IV Titration 113.667 Amount Heparin Sodium,Porcine/ 113.667 D5w Pmx 25,000 unit In Dextrose/Water 1 500ml. bag @ 9 UNITS/KG/HR 20 mls/hr IV .Q24H [facility] Rx#: [id number] Other: Voiding Method Toilet Toilet Toilet # Voids 2 1 # Bowel Movements 1 Weight 109.5 kg 09/27/16 14:38 09/27/16 14:38 EKG Interpretations (text) EKG indicates a normal sinus mechanism with no T-wave abnormalities Assessment and Plan Plan: ASSESSMENT 1. Chest pain, known history of CAD with history of CABG 2010 2. Hypertension 3. Hyperlipidemia 4. Chronic tobacco abuse, ongoing PLAN We have recommended a heart catheterization. I have discussed the risks, benefits and alternative therapies for the above-mentioned procedure and for both sedation/analgesia as well as necessary blood product administration, if indicated, as they pertain to this patient. The patient has indicated understanding and acceptance of the risks and procedures discussed. The patient and his are both agreeable. We will proceed with cardiac catheterization at this time. Further recommendations will depend on the outcomes of the procedure. Nurse Practitioner note has been reviewed, I agree with a documented findings and plan of care. Patient was seen and examined.
[2016-09-28] MEDS ORDERED: HEPARIN SODIUM,PORCINE 5,000 UNIT/ML 1 ML VIAL IV PRN (13:22)
[2016-09-28] MEDS: HEPARIN SODIUM,PORCINE/D5W PMX 25,000 UNIT in DEXTROSE/WATER 1 500ML.BAG IV SCH ×2 (14:37→23:19)
[2016-09-28] MEDS: PANTOPRAZOLE 40 MG TABLET PO SCH (16:00)
[2016-09-28] MEDS: ALPRAZolam 0.5 MG TAB PO PRN (16:12)
[2016-09-28] MEDS: ATORVASTATIN 20 MG TAB PO SCH (18:06)
[2016-09-28] MEDS: ASPIRIN 325 MG TAB PO SCH (18:06)
[2016-09-28] MEDS: NICOTINE 14MG/24HR PATCH TRANSDERM SCH (18:07)
[2016-09-28] MEDS: SODIUM CHLORIDE 0.9% 1,000 ML IV SCH (18:07)
[2016-09-28] MEDS: EZETIMIBE 10 MG TAB PO SCH (20:04)
[2016-09-29 03:03] LABS: Aty Lym Flag Slight; CH 29.9; CHCM 32.9; HCT 48.3 % (39.0-53.0); HDW 2.49; HGB 16.2 gm/dL (13.0-17.5); MCH 30.6 pg (25.0-35.0); MCHC 33.5 g/dL (31.0-37.0); MCV 91.4 fL (80.0-100.0); Mean Platelet Volume 8.1; RBC 5.28 m/uL (4.30-5.90); RDW 14.1 % (11.5-15.5); WBC 8.6 k/uL (3.8-10.6); WBC (Perox) 8.49
[2016-09-29] MEDS: SODIUM CHLORIDE 0.9% 1,000 ML IV SCH ×2 (03:31→10:58)
[2016-09-29 03:57] LABS: Add Differential Manual Differential
[2016-09-29 03:59] LABS: Manual Review Performed; Nucleated Red Blood Cells 0 /100 WBC (0-0); Reactive Lymphocytes Present; Total Cells Counted 100
[2016-09-29] MEDS: ATORVASTATIN 20 MG TAB PO SCH (06:27)
[2016-09-29] MEDS: METOPROLOL SUCCINATE (ER) 100 MG TAB.ER.24H PO SCH ×2 (06:27→20:24)
[2016-09-29] MEDS: ASPIRIN 325 MG TAB PO SCH (06:28)
[2016-09-29] MEDS: PANTOPRAZOLE 40 MG TABLET PO SCH (06:28)
[2016-09-29] MEDS: LISINOPRIL 20 MG TAB PO SCH (06:28)
--- NOTE | 2016-09-29 08:42 | P.PN ---
Subjective Principal diagnosis: Chest pain This is a 51-year-old male with a known history of coronary disease with previous coronary bypass grafting surgery, hyperlipidemia, hypertension and nicotine dependence. Patient presents to the emergency room with intermittent chest pressure for the past week. Patient reports that symptoms may last for about 15 minutes he stands up and stretches and they go away. He has had some episodes of diaphoresis. He also reports having some numbness in both arms at times with the chest pressure. He denies any dizziness lightheadedness, any fevers or chills. Denies any cough, denies any nausea or vomiting. Denies any bowel movement changes or urinary symptoms. Patient has been admitted to the observation unit, cardiology has been consult was any scheduled for heart catheterization today. Troponins are negative 3 EKG normal sinus rhythm and chest x-rays negative. On 09/29/2016 patient seen and examined on the 6 floor, he denies any more episodes of chest pain, cardiac catheterization was done yesterday and patient has significant stenosis in the circumflex artery, plan is to proceed with angioplasty and stent placement today per cardiology. Objective - Vital Signs Vital signs: Vital Signs Temp 98.3 F 09/29/16 08:17 Pulse 69 09/29/16 08:17 Resp 16 09/29/16 08:17 BP 116/78 09/29/16 08:17 Pulse Ox 96 09/29/16 08:17 Intake & Output 09/28/16 09/29/16 09/29/16 18:59 06:59 18:59 Intake Total 200 672.392 Output Total 250 Balance -50 672.392 Intake: IV 200 Intake, IV Titration 672.392 Amount Heparin Sodium,Porcine/ 297.392 D5w Pmx 25,000 unit In Dextrose/Water 1 500ml. bag @ 9.13 UNITS/KG/HR 19 .99 mls/hr IV .Q24H [facility] Rx#:[id number] Sodium Chloride 0.9% 1, 375 000 ml In Empty Bag 1 bag @ 75 mls/hr IV .[id number] [facility] Rx#:[id number] Output: Urine 250 Other: Voiding Method Toilet # Voids 1 2 2 # Bowel Movements 1 - Exam In general patient is alert and oriented 3 in no apparent distress HEENT head normocephalic and atraumatic Neck is supple no JVD no goiter no lymphadenopathy Chest exam reveals a clear respiratory sounds no crackles no wheezing Cardiac exam reveals regular heart sounds S1 and S2 no gallops no murmurs Abdomen is soft nontender no organomegaly with normal bowel sounds Extremity exam reveals no edema no cyanosis or clubbing normal palpable pulses bilaterally Skin exam reveals multiple round erythematous lesions on bilateral pretibial areas - Labs CBC & Chem 7: 09/29/16 02:53 09/28/16 03:39 Labs: Abnormal Lab Results - Last 24 Hours (Table) 09/28/16 09/28/16 09/28/16 Range/Units 03:39 03:39 20:28 Plt Count 115 L (150-450) k/uL APTT 30.6 H (22.0-30.0) sec Glucose 106 H (74-99) mg/dL Total Protein 5.9 L (6.3-8.2) g/dL 09/29/16 09/29/16 Range/Units 02:53 02:53 Plt Count 109 L (150-450) k/uL APTT 44.3 H (22.0-30.0) sec Glucose (74-99) mg/dL Total Protein (6.3-8.2) g/dL Assessment and Plan Plan: 1. Chest pain: Patient underwent heart catheterization yesterday. Chest x- rays negative. EKG normal sinus rhythm troponins are negative 3. Cardiology increased aspirin to a full 325 mg daily and give 1 dose of this Lipitor 80. Patient started on IV heparin in the emergency room, cardiac catheterization results from yesterday reviewed, case discussed with cardiology plan is to proceed with angioplasty and stent placement to the circumflex artery today 2. Essential hypertension: Blood pressure stable 3. Hyperlipidemia continue Lipitor 4. History of coronary artery disease and previous coronary bypass surgery 5. Nicotine dependence: Discussed smoking cessation. Patient received nicotine patch. He smokes about 6-8 cigarettes a day, patient was counseled in length today in regard to smoking cessation counseling more than 10 minutes.
[2016-09-29] MEDS ORDERED: HYDROmorphone 1 MG/ML 1 ML SYRINGE IVP PRN (09:17)
[2016-09-29] MEDS ORDERED: diphenhydrAMINE 50 MG/ML 1 ML VIAL ONE (10:31)
[2016-09-29] MEDS ORDERED: LIDOCAINE 2% INJ 20 MG/ML (20 ML MDV) ONE (10:31)
[2016-09-29] MEDS ORDERED: MIDAZOLAM 2 MG/2 ML VIAL ONE (10:31)
[2016-09-29] MEDS: TRIAMCINOLONE 0.1% CREAM 80 GM TUBE TOPICAL SCH ×2 (11:03→20:24)
[2016-09-29] MEDS ORDERED: LIDOCAINE 2% INJ 20 MG/ML SQ ONE (11:18)
[2016-09-29] MEDS ORDERED: diphenhydrAMINE 50 MG/ML 1 ML VIAL IVP ONE (11:19)
[2016-09-29] MEDS: MIDAZOLAM 2 MG/2 ML VIAL IV ONE ×3 (11:20→11:40)
[2016-09-29] MEDS ORDERED: HYDROmorphone 2 MG/ML 1 ML SYRINGE ONE ×2 (11:23→12:24)
[2016-09-29] MEDS: HYDROmorphone 2 MG/ML 1 ML SYRINGE IV ONE ×4 (11:26→12:17)
[2016-09-29] MEDS ORDERED: BIVALIRUDIN BOLUS 250 MG/50 ML IV ONE (11:31)
[2016-09-29] MEDS ORDERED: BIVALIRUDIN 250 MG in SODIUM CHLORIDE 0.9% 50 ML IV ONE ×2 (11:31→12:11)
[2016-09-29] MEDS: NITROGLYCERIN 1000MCG/10ML SYRINGE INTRACORON ONE ×3 (11:44→12:18)
[2016-09-29] MEDS ORDERED: NITROGLYCERIN SL TABS 0.4 MG TAB SUBLINGUAL ONE ×4 (12:01→12:24)
[2016-09-29] MEDS ORDERED: METOPROLOL TARTRATE 5 MG/5 ML VIAL IVP ONE ×2 (12:14→12:17)
[2016-09-29] MEDS ORDERED: HYDROmorphone 2 MG/ML 1 ML SYRINGE IV ONE (12:27)
[2016-09-29] MEDS ORDERED: CLOPIDOGREL 75 MG TAB ONE (12:28)
[2016-09-29] MEDS ORDERED: IOHEXOL 350 MG/ML 100 ML BOTTLE INJ ONE (12:32)
[2016-09-29] MEDS ORDERED: CLOPIDOGREL 75 MG TAB PO ONE (12:32)
[2016-09-29] MEDS ORDERED: NITROGLYCERIN-D5W PMX 50 MG in DEXTROSE/WATER 1 250ML.BAG IV ONE (12:48)
[2016-09-29] MEDS ORDERED: SODIUM CHLORIDE 0.9% 500 ML IV ONE (12:55)
[2016-09-29 13:40] LABS: Glucose,Whole Blood 107 mg/dL (75-99)
[2016-09-29] MEDS: HYDROmorphone 1 MG/ML 1 ML SYRINGE IVP PRN ×3 (15:18→21:44)
[2016-09-29] MEDS: ALPRAZolam 0.25 MG TAB PO PRN (15:39)
[2016-09-29] MEDS: HEPARIN SODIUM,PORCINE/D5W PMX 25,000 UNIT in DEXTROSE/WATER 1 500ML.BAG IV SCH (17:21)
[2016-09-29] MEDS: NICOTINE 14MG/24HR PATCH TRANSDERM SCH (17:21)
--- NOTE | 2016-09-29 19:31 | ECHOF ---
Referral Reason:chest pain MEASUREMENTS -------- HEIGHT: 175.3 cm WEIGHT: 109.3 kg BP: 138/85 IVSd: 1.2 cm (0.6 - 1.1) LVIDd: 5.5 cm (3.9 - 5.3) LVPWd: 1.2 cm (0.6 - 1.1) IVSs: 1.5 cm LVIDs: 3.9 cm LVPWs: 1.4 cm LAESV Index (A-L): 14.37 ml/m Ao Diam: 3.6 cm (2.0 - 3.7) AV Cusp: 1.8 cm (1.5 - 2.6) LA Diam: 3.0 cm (2.7 - 3.8) MV E Adiel: 0.77 m/s MV DecT: 263 ms MV A Adiel: 0.64 m/s MV E/A Ratio: 1.21 RAP: 5.00 mmHg RVSP: 8.46 mmHg FINDINGS -------- Sinus rhythm. This was a technically adequate study. There is mild concentric left ventricular hypertrophy. Overall left ventricular systolic function is low-normal with, an EF between 50 - 55 %. The right ventricle is normal in size and function. Normal LA size by volume 22+/-6 ml/m2. The right atrium is normal in size. Aortic valve is trileaflet and is mildly thickened. There is no evidence of aortic regurgitation. There is no evidence of aortic stenosis. The mitral valve leaflets are mildly thickened. There is trace mitral regurgitation. Trace tricuspid regurgitation present. The right ventricular systolic pressure, as measured by Doppler, is 8.46mmHg. Unable to estimate RVSP due to inadequate TR jet spectral doppler profile. The pulmonic valve was not well visualized. The aortic root size is normal. IVC Not well visulized. The pericardium is normal. There is no pericardial effusion. CONCLUSIONS -------- 1. Sinus rhythm. 2. The right ventricular systolic pressure, as measured by Doppler, is 8.46mmHg. 3. Unable to estimate RVSP due to inadequate TR jet spectral doppler profile. 4. The pulmonic valve was not well visualized. 5. The aortic root size is normal. 6. IVC Not well visulized. 7. There is no pericardial effusion. 8. This was a technically adequate study. 9. There is mild concentric left ventricular hypertrophy. 10. Overall left ventricular systolic function is low-normal with, an EF between 50 - 55 %. 11. Normal LA size by volume 22+/-6 ml/m2. 12. Aortic valve is trileaflet and is mildly thickened. 13. The mitral valve leaflets are mildly thickened. 14. There is trace mitral regurgitation. 15. Trace tricuspid regurgitation present. TRACK MANAGER: Eusebio Perez RDCS
[2016-09-29] MEDS: ACETAMINOPHEN TAB 325 MG TAB PO PRN (19:53)
[2016-09-29] MEDS: EZETIMIBE 10 MG TAB PO SCH (20:24)
[2016-09-29] MEDS: ALPRAZolam 0.5 MG TAB PO PRN (21:44)
[2016-09-30] MEDS: ACETAMINOPHEN TAB 325 MG TAB PO PRN ×3 (01:56→21:29)
[2016-09-30] MEDS: ALPRAZolam 0.25 MG TAB PO PRN ×2 (02:58→17:36)
[2016-09-30] MEDS: HYDROmorphone 1 MG/ML 1 ML SYRINGE IVP PRN ×2 (03:22→06:33)
[2016-09-30] MEDS: SODIUM CHLORIDE 0.9% 1,000 ML IV SCH (04:18)
[2016-09-30 04:57] LABS: Aty Lym Flag Slight; CH 31.4; CHCM 33.6; HCT 44.7 % (39.0-53.0); HDW 2.47; HGB 14.6 gm/dL (13.0-17.5); MCH 30.5 pg (25.0-35.0); MCHC 32.6 g/dL (31.0-37.0); MCV 93.8 fL (80.0-100.0); Mean Platelet Volume 9.1; RBC 4.77 m/uL (4.30-5.90); WBC 11.7 k/uL (3.8-10.6); WBC (Perox) 12.01
[2016-09-30 05:02] LABS: Anion Gap 9 mmol/L; Blood Urea Nitrogen 12 mg/dL (9-20); Calcium 9.1 mg/dL (8.4-10.2); Carbon Dioxide 24 mmol/L (22-30); Chloride 102 mmol/L (98-107); Glucose 122 mg/dL (74-99); Magnesium 1.8 mg/dL (1.6-2.3); Non-African American GFR(MDRD) >60 (>60 ml/min/1.73 sqM); Phosphorous 3.6 mg/dL (2.5-4.5); Potassium 4.2 mmol/L (3.5-5.1); Sodium 135 mmol/L (137-145)
[2016-09-30] MEDS: ATORVASTATIN 20 MG TAB PO SCH (06:34)
[2016-09-30] MEDS: METOPROLOL SUCCINATE (ER) 100 MG TAB.ER.24H PO SCH ×2 (06:34→20:25)
[2016-09-30] MEDS: PANTOPRAZOLE 40 MG TABLET PO SCH (06:35)
[2016-09-30] MEDS ORDERED: Magnesium Replacement Protocol 1 EACH MISC MISCELLANE PRN (06:55)
[2016-09-30 07:02] LABS: Add Differential Manual Differential
[2016-09-30 07:05] LABS: Band Neutrophils % 4 %; Nucleated Red Blood Cells 0 /100 WBC (0-0); Total Cells Counted 100
[2016-09-30 07:07] LABS: Large Platelets Present
[2016-09-30] MEDS: NITROGLYCERIN-D5W PMX 50 MG in DEXTROSE/WATER 1 250ML.BAG IV SCH ×2 (07:46→13:58)
[2016-09-30] MEDS: MAGNESIUM SULFATE-D5W PMX 1 GM in DEXTROSE/WATER 1 100ML.BAG IVPB SCH ×2 (08:04→09:42)
[2016-09-30] MEDS: CLOPIDOGREL 75 MG TAB PO SCH (08:15)
[2016-09-30] MEDS: LISINOPRIL 20 MG TAB PO SCH (08:15)
[2016-09-30] MEDS: ASPIRIN 325 MG TAB PO SCH (08:16)
[2016-09-30] MEDS: TRIAMCINOLONE 0.1% CREAM 80 GM TUBE TOPICAL SCH ×2 (08:16→20:26)
[2016-09-30] MEDS: ALPRAZolam 0.5 MG TAB PO PRN (08:27)
--- NOTE | 2016-09-30 11:15 | P.PN ---
Subjective Principal diagnosis: Unstable angina with history of prior bypass surgery This patient underwent stenting of the very difficult proximal LAD lesion. More importantly there were 3 other branches coming from this LAD prior to the PRIDE attachment. There was also dieting branch are free of Blood which had a chronic lesion and I could not open this vessel of multiple attempts. I was able to cross the LAD but could not advance the balloon. However he does not have any chest pain to suggest angina this morning. His EKG is unremarkable his laboratory data are unremarkable. I'm going to increase activity today more him out of telemetry. Will discontinue Dilaudid and give him some Archer for some mild sharp pleuritic type pain that he has. Echocardiogram did not reveal any evidence of pericardial effusion and LV function is well-preserved. This gentleman had aortic coronary bypass surgery and came in with angina. I will during the intervention procedure I noted that one of the vein graft to the ramus intermedius was also patent. Proximal LAD was stented with excellent result and the diagnal PTCA was unsuccessful. This was explained to the patient and his . We will increase his activity more him to telemetry and hopefully discharge him tomorrow. Blood pressure is 120/70 pulse is 64/m no JVD or rate S1-S2 heard normally lungs are clear abdomen and lower extremity exam unchanged right groin is clean and dry with good pulses. Objective - Vital Signs Vital signs: Vital Signs Temp 97.7 F 09/30/16 08:00 Pulse 64 09/30/16 10:00 Resp 15 09/30/16 10:00 BP 123/72 09/30/16 10:00 Pulse Ox 96 09/30/16 10:00 Intake & Output 09/29/16 09/30/16 09/30/16 18:59 06:59 18:59 Intake Total 650 900 200 Output Total 400 500 Balance 250 400 200 Weight 109.5 kg 111.4 kg Intake: IV 650 900 0 Sodium Chloride 0.9% 1, 375 900 0 000 ml @ 75 mls/hr IV . [id number] [facility] Rx#:[id number] Intake, IV Titration 200 Amount Magnesium Sulfate-D5w Pmx 200 1 gm In Dextrose/Water 1 100ml.bag @ 100 mls/hr IVPB Q1H [facility] Rx#: [id number] Output: Urine 500 Emesis 400 Other: Voiding Method Urinal Urinal # Voids 2 1 1 # Bowel Movements 0 - Labs CBC & Chem 7: 09/30/16 04:18 09/30/16 04:18 Labs: Abnormal Lab Results - Last 24 Hours (Table) 09/29/16 09/30/16 09/30/16 Range/Units 13:38 04:18 04:18 WBC 11.7 H (3.8-10.6) k/uL Plt Count 109 L (150-450) k/uL Neutrophils # (Manual) 8.00 H (1.3-7.7) k/uL Sodium 135 L (137-145) mmol/L Glucose 122 H (74-99) mg/dL POC Glucose (mg/dL) 107 H (75-99) mg/dL
[2016-09-30] MEDS: NICOTINE 14MG/24HR PATCH TRANSDERM SCH (12:05)
[2016-09-30] MEDS: HYDROcodone/APAP 5-325MG 1 EACH TAB PO PRN ×2 (12:06→18:53)
[2016-09-30] MEDS: HEPARIN SODIUM,PORCINE/D5W PMX 25,000 UNIT in DEXTROSE/WATER 1 500ML.BAG IV SCH (13:59)
[2016-09-30] MEDS: COLCHICINE 0.6 MG TAB PO SCH (15:20)
--- NOTE | 2016-09-30 19:36 | P.PN ---
Subjective Principal diagnosis: Chest pain This is a 51-year-old male with a known history of coronary disease with previous coronary bypass grafting surgery, hyperlipidemia, hypertension and nicotine dependence. Patient presents to the emergency room with intermittent chest pressure for the past week. Patient reports that symptoms may last for about 15 minutes he stands up and stretches and they go away. He has had some episodes of diaphoresis. He also reports having some numbness in both arms at times with the chest pressure. He denies any dizziness lightheadedness, any fevers or chills. Denies any cough, denies any nausea or vomiting. Denies any bowel movement changes or urinary symptoms. Patient has been admitted to the observation unit. Troponins are negative 3 EKG normal sinus rhythm and chest x -rays negative. On 09/29/2016 patient seen and examined on the 6 floor, he denies any more episodes of chest pain, cardiac catheterization was done yesterday and patient has significant stenosis in the circumflex artery, Patient had angioplasty and stent placement, he had episodes of chest pain postprocedure he was admitted to intensive care unit for monitoring. 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 Objective - Vital Signs Vital signs: Vital Signs Temp 97.7 F 09/30/16 13:00 Pulse 70 09/30/16 16:17 Resp 16 09/30/16 16:17 BP 131/74 09/30/16 18:00 Pulse Ox 96 09/30/16 16:17 Intake & Output 09/30/16 09/30/16 10/01/16 06:59 18:59 06:59 Intake Total 900 700 Output Total 500 0 Balance 400 700 Weight 111.4 kg 111.4 kg Intake: IV 900 0 Sodium Chloride 0.9% 1, 900 0 000 ml @ 75 mls/hr IV . [id number] TIFFANI Rx#:[id number] Intake, IV Titration 200 Amount Magnesium Sulfate-D5w Pmx 200 1 gm In Dextrose/Water 1 100ml.bag @ 100 mls/hr IVPB Q1H TIFFANI Rx#: [id number] Oral 500 Output: Urine 500 0 Other: Voiding Method Urinal Toilet Urinal # Voids 1 1 # Bowel Movements 0 0 - Exam In general patient is alert and oriented 3 in no apparent distress HEENT head normocephalic and atraumatic Neck is supple no JVD no goiter no lymphadenopathy Chest exam reveals a clear respiratory sounds no crackles no wheezing Cardiac exam reveals regular heart sounds S1 and S2 no gallops no murmurs Abdomen is soft nontender no organomegaly with normal bowel sounds Extremity exam reveals no edema no cyanosis or clubbing normal palpable pulses bilaterally Skin exam reveals multiple round erythematous lesions on bilateral pretibial areas - Labs CBC & Chem 7: 09/30/16 04:18 09/30/16 04:18 Labs: Abnormal Lab Results - Last 24 Hours (Table) 09/30/16 09/30/16 Range/Units 04:18 04:18 WBC 11.7 H (3.8-10.6) k/uL Plt Count 109 L (150-450) k/uL Neutrophils # (Manual) 8.00 H (1.3-7.7) k/uL Sodium 135 L (137-145) mmol/L Glucose 122 H (74-99) mg/dL Assessment and Plan Plan: 1. Chest pain: Patient underwent heart catheterization yesterday. Chest x- rays negative. EKG normal sinus rhythm troponins are negative 3. Cardiology increased aspirin to a full 325 mg daily and give 1 dose of this Lipitor 80. Patient started on IV heparin in the emergency room, cardiac catheterization results from yesterday reviewed, case discussed with cardiology patient had angioplasty and stent placement to the circumflex artery yesterday, he continued to have episodes of chest pain postprocedure he was admitted to intensive care unit for monitoring, patient is doing well however he is still having episode of chest pain, discussed was cardiology further treatment plan. 2. Essential hypertension: Blood pressure stable 3. Hyperlipidemia continue Lipitor 4. History of coronary artery disease and previous coronary bypass surgery 5. Nicotine dependence: Discussed smoking cessation. Patient received nicotine patch. He smokes about 6-8 cigarettes a day, patient was counseled in length today in regard to smoking cessation counseling more than 10 minutes.
[2016-09-30] MEDS: EZETIMIBE 10 MG TAB PO SCH (20:26)
--- NOTE | 2016-09-30 20:38 | PTCA ---
DATE OF PROCEDURE: 09/29/16 PROCEDURE: 1. PTCA of a subtotally occluded diagonal branch of LAD. 2. PTCA and stenting of proximal left anterior descending coronary artery which is a protected LAD with patent PRIDE graft attached distally. PERFORMED BY: Dr. Sean Rachel. CLINICAL INFORMATION: Mr. 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 He was seen and evaluated by me in 2010 and underwent cardiac catheterization and followed by urgent bypass surgery with PRIDE to the LAD, vein graft to the distal LAD, ramus intermedius, distal circumflex and distal RCA. Coronary angiography yesterday revealed that two of the vein grafts were open and two were occluded and PRIDE to LAD was patent but the patient had a tight lesion in the diagonal and also diffuse disease in the mid circumflex. He was advised intervention because of ongoing chest pain mainly because of diagonal stenosis of 99% which seemed to be a chronic lesion. PROCEDURE NOTE: Under local anesthesia and strict aseptic precautions, a 6 Kazakh introducer was placed in the right femoral artery. A JL3.5 guide catheter was used to cannulate the left coronary artery. I used a BMW wire and with this wire I crossed the subtotal occlusion of the diagonal and kept it distally. I made several attempts with different balloons of 2.25 caliber initially and then 1.5 10 mm length, 1.5 6 mm length but I was unable to get to the actual lesion. Proximal to the lesion, I gave two inflations. There was some sluggish flow in the diagonal after this because of repeated efforts to get to the lesion with a 1.5 caliber balloon. The patient had chest pain and ST elevation in Lead 1 and AVL. Eventually, this was an unsuccessful angioplasty and after several attempts, I advised that I would performed PTCA and stenting of the proximal LAD which also had 70% lesion and this was addressed with a 2.5 caliber 12 mm long Xience stent that was deployed at 13 atmospheres. The patient had mild chest pain and ST segment elevation in 1 and AVL. Excellent angiographic of the proximal LAD was achieved but the diagonal branch appeared to have subtotal occlusion with ongoing pain requiring Dilaudid. The patient remained hemodynamically stable. I then performed selective coronary angiography using an AR2 catheter of the vein graft to the ramus intermedius which was thought to be occluded but this graft was widely patent with very good flow. The patient therefore has four out of five grafts opened. The only graft is occluded in the distal LAD graft but the LAD flow is excellent thru the PRIDE graft. The proximal LAD has now been stented and the diagonal branch was unsuccessful PTCA. This was explained to the patient and also family. He will be treated with Dilaudid for pain control and hopefully in another hour or so, the pain will settle down. He will be sent to the ICU on a small dose of Nitroglycerine drip. The sheath was taken out and AngioSeal device used to secure hemostasis. The details of the procedure were explained to the patient and his family members including and son. The proximal LAD was stented with excellent result. The diagonal angioplasty was not successful with sluggish flow. The patient was hemodynamically stable. He received 600 mg of Plavix and also received Angio-Max and bolus and infusion as per protocol. Moderate conscious sedation was provided for a total duration of 1 hour and 15 minutes. [facility]
--- NOTE | 2016-09-30 20:42 | MISC ---
Dear Dr. Hinojosa: I had the pleasure of performing PTCA and stenting of proximal LAD and unsuccessful PTCA of diagonal branch. The diagonal branch appears to be small in caliber but seems to have a fair amount of distribution because of significant angina he developed after the vessel remained subtotally occluded. For this, I would not recommend any additional intervention but would continue pain control. Details of the whole vent were discussed with the patient and his family members. I expect we will keep him at least an additional 24 hours and discharge him in 48 hours from today. His proximal LAD result was excellent and he also has a patent graft to the ramus intermedius which we thought was occluded. Thank you for your referral and please call for questions. With kindest regards, Sincerely yours, STEPHENIE
[2016-10-01] MEDS: PANTOPRAZOLE 40 MG TABLET PO SCH (06:28)
[2016-10-01] MEDS: METOPROLOL SUCCINATE (ER) 100 MG TAB.ER.24H PO SCH (06:28)
[2016-10-01] MEDS: ATORVASTATIN 20 MG TAB PO SCH (06:28)
[2016-10-01 06:33] LABS: Aty Lym Flag Slight; CH 31.3; CHCM 33.8; HCT 48.4 % (39.0-53.0); HDW 2.43; HGB 15.6 gm/dL (13.0-17.5); MCHC 32.3 g/dL (31.0-37.0); MCV 92.9 fL (80.0-100.0); RBC 5.21 m/uL (4.30-5.90); WBC 9.7 k/uL (3.8-10.6); WBC (Perox) 9.14
[2016-10-01 08:19] LABS: Add Differential Manual Differential
[2016-10-01 08:21] LABS: Nucleated Red Blood Cells 0 /100 WBC (0-0); Total Cells Counted 100
[2016-10-01 08:22] LABS: RBC Morphology Normal
--- NOTE | 2016-10-01 09:46 | CDI ---
In responding to this query, please exercise your independent professional judgment. The [facility] Coding Staff and Clinical Documentation Specialists appreciate your assistance in clarifying documentation, maintaining compliance with coding guidelines, accurately documenting patients condition and capturing severity of illness. The fact that a question is asked does not imply that any particular answer is desired or expected. Communication forms are a method of clarifying documentation and are not made part of the Legal Health Record. Thank you in advance for your clarification. Last Revision, April 2015 Lesly Rouse [address] [place] [address] Documentation Clarification Form Date: 10/01/2016 9:16:00 AM From: Mami Chaves Admit Date: 09/30/2016 8:11:00 AM Patient Name: Vance Owens Visit Number: [id number] Discharge Date: Dr. Ernesto Hinojosa/Mariam Tapia PA-C Chest pain is documented in the H&P and progress notes. Patient C/O: Intermittent chest pressure for the past week. History/Risk factors: Coronary artery disease with previous coronary artery bypass grafting, Hypertension, Nicotine dependence Clinical Indicators: He reports numbness in both arms, chest pressure, Labs: Troponins negative x3 EKG normal sinus rhythm Treatment: ASA IV Fluid bolus Nitrostat Sublingual Lopressor IV Heparin drip Heart catheterization with PTCA Cardiology consults: Preoperative diagnosis: unstable angina. Post Left Heart Catheterization: Diffuse coronary artery disease. 09/30/16: Unstable angina with history of prior bypass surgery. In your professional opinion, can please clarify if the chest pain signifies, or is due to: CAD with angina (vessel type if known and type of angina) Chest wall pain Gastro esophageal reflux disease Pleurisy, type Unable to determine Other condition, please specify? Concurrently please document in your progress notes and discharge summary in order to capture severity of illness and risk of mortality. Include clinical findings that support your diagnosis. FYI: Press F11 to launch patient chart MTDD
[2016-10-01] MEDS: ASPIRIN 325 MG TAB PO SCH (09:47)
[2016-10-01] MEDS: COLCHICINE 0.6 MG TAB PO SCH (09:47)
[2016-10-01] MEDS: CLOPIDOGREL 75 MG TAB PO SCH (09:47)
[2016-10-01] MEDS: TRIAMCINOLONE 0.1% CREAM 80 GM TUBE TOPICAL SCH (09:48)
[2016-10-01] MEDS: NICOTINE 14MG/24HR PATCH TRANSDERM SCH (09:48)
[2016-10-01] MEDS: LISINOPRIL 20 MG TAB PO SCH (09:48)
--- NOTE | 2016-10-01 12:08 | P.DS ---
Providers Date of admission: 09/30/16 08:11 Expected date of discharge: 10/01/16 Attending physician: Cherelle Hodges Consults: 09/27/16 15:56 Consult Physician Urgent Consulting Provider: [facility] Consult Reason/Comments: Unstable angina Do you want consulting provider notified?: Yes Primary care physician: [facility] Hospital Course: 1. Chest pain: Secondary to coronary artery disease with angina. Patient underwent heart catheterization yesterday. Chest x-rays negative. EKG normal sinus rhythm troponins are negative 3. Cardiology increased aspirin to a full 325 mg daily and give 1 dose of this Lipitor 80. Patient started on IV heparin in the emergency room, cardiac catheterization results from yesterday reviewed, case discussed with cardiology patient had angioplasty and stent placement to the circumflex artery yesterday, he continued to have episodes of chest pain postprocedure he was admitted to intensive care unit for monitoring, patient is doing well however he is still having episode of chest pain, discussed was cardiology further treatment plan. 2. Essential hypertension: Blood pressure stable 3. Hyperlipidemia continue Lipitor 4. History of coronary artery disease and previous coronary bypass surgery 5. Nicotine dependence: Discussed smoking cessation. Patient received nicotine patch. He smokes about 6-8 cigarettes a day, patient was counseled in length today in regard to smoking cessation counseling more than 10 minutes. Hospital course This is a 51-year-old male with a known history of coronary disease with previous coronary bypass grafting surgery, hyperlipidemia, hypertension and nicotine dependence. Patient presents to the emergency room with intermittent chest pressure for the past week. Patient reports that symptoms may last for about 15 minutes he stands up and stretches and they go away. He has had some episodes of diaphoresis. He also reports having some numbness in both arms at times with the chest pressure. He denies any dizziness lightheadedness, any fevers or chills. Denies any cough, denies any nausea or vomiting. Denies any bowel movement changes or urinary symptoms. Patient has been admitted to the observation unit, cardiology has been consult was any scheduled for heart catheterization today. Troponins are negative 3 EKG normal sinus rhythm and chest x-rays negative. Patient underwent heart catheterization with significant stenosis of the circumflex artery. He underwent angioplasty and stent placement. Patient was having chest pain postprocedure. And did require to be admitted to the ICU. Patient currently on the sixth floor. No further episodes of chest pain. Cardiology did give him a dose of colchicine yesterday. They're not recommending and at that time of discharge. Patient Tylenol as needed for pain control. Patient is medically stable for discharge. Cardiology has recommended to continue Lipitor 20 mg daily. They have added Plavix 75 mg daily lisinopril 40 daily and a nicotine patch. Please refer to chart for any further details. Patient Condition at Discharge: Stable Plan - Discharge Summary New Discharge Prescriptions: New RX: Atorvastatin [Lipitor] 20 mg PO DAILY@0700 #30 tab RX: Clopidogrel [Plavix] 75 mg PO DAILY #30 tab RX: Lisinopril [Zestril] 40 mg PO DAILY #30 tab RX: Nicotine 14Mg/24Hr Patch [Habitrol] 1 patch TRANSDERM DAILY #30 patch RX: Nitroglycerin Sl Tabs [Nitrostat] 0.4 mg SUBLINGUAL Q5M PRN #25 tab PRN Reason: Chest Pain Continue RX: Metoprolol Succinate (ER) [Toprol XL] 100 mg PO BID@699,190 RX: Ezetimibe [Zetia] 10 mg PO HS@1900 RX: Aspirin EC [Ecotrin Low Dose] 81 mg PO ONCE PRN PRN Reason: Chest Pain Discontinued Simvastatin [Zocor] 40 mg PO DAILY@0700 Enalapril [Vasotec] 10 mg PO BID@0700,1900 Discharge Medication List RX: Aspirin EC [Ecotrin Low Dose] 81 mg PO ONCE PRN 09/27/16 [History] RX: Ezetimibe [Zetia] 10 mg PO HS@19009/27/16 [History] RX: Metoprolol Succinate (ER) [Toprol XL] 100 mg PO BID@0700,1900 09/27/16 [ History] RX: Atorvastatin [Lipitor] 20 mg PO DAILY@0700 #30 tab 10/01/16 [Rx] RX: Clopidogrel [Plavix] 75 mg PO DAILY #30 tab 10/01/16 [Rx] RX: Lisinopril [Zestril] 40 mg PO DAILY #30 tab 10/01/16 [Rx] RX: Nicotine 14Mg/24Hr Patch [Habitrol] 1 patch TRANSDERM DAILY #30 patch [Rx] RX: Nitroglycerin Sl Tabs [Nitrostat] 0.4 mg SUBLINGUAL Q5M PRN #25 tab [Rx] Follow up Appointment(s)/Referral(s): Darlene Carolina MD [STAFF PHYSICIAN] - 1 Week Ernesto Hinojosa MD [Primary Care Provider] - 1 Week (Tuesday 10/03 at 10:30am) Patient Instructions/Handouts: *Surgery [facility] - After Heart Catheterization - Line O Scribe Operator Instructions, Chest Pain (DC), Heart Catheterization (DC) Activity/Diet/Wound Care/Special Instructions: Heart Healthy Diet Smoking Cessation Discharge Disposition: HOME SELF-CARE
[2016-10-01 12:59] VITALS: BP 122/80; PULSE 80; RESP 18; TEMP 98
--- NOTE | 2016-10-01 13:41 | P.PN ---
Subjective Principal diagnosis: Chest pain This is a 51-year-old gentleman with history of coronary artery disease and prior bypass surgery, hypertension, hyperlipidemia, chronic daily tobacco use, who presented to the hospital with symptoms of chest discomfort. He was taken to the cardiac catheterization lab by Dr. Carolina on Wednesday, patient was found to have diffuse coronary artery disease with a critical lesion in the mid circumflex and first diagonal branch.subsequent to the heart cath, patient was taken down to the mechanical laboratory technician the following day for PTCA of a subtotally occluded diagonal branch of the LAD as well as PTCA and stenting of the proximal LAD. Patient was seen and examined this morning, denies any chest pain or difficulty in breathing. He's been up ambulating without any difficulty. Hemodynamically stable Objective - Vital Signs Vital signs: Vital Signs Temp 98 F 10/01/16 08:00 Pulse 80 10/01/16 08:00 Resp 18 10/01/16 08:00 BP 122/80 10/01/16 08:00 Pulse Ox 98 10/01/16 08:00 Intake & Output 09/30/16 10/01/16 10/01/16 18:59 06:59 18:59 Intake Total 700 180 Output Total 0 Balance 700 180 Weight 111.4 kg 108.4 kg Intake: IV 0 Sodium Chloride 0.9% 1, 0 000 ml @ 75 mls/hr IV . [id number] TIFFANI Rx#:[id number] Intake, IV Titration 200 Amount Magnesium Sulfate-D5w Pmx 200 1 gm In Dextrose/Water 1 100ml.bag @ 100 mls/hr IVPB Q1H TIFFANI Rx#: [id number] Oral 500 180 Output: Urine 0 Other: Voiding Method Toilet Toilet Urinal Urinal # Voids 1 # Bowel Movements 0 - Exam PHYSICAL EXAMINATION: HEENT: Head is atraumatic, normocephalic. Pupils equal, round. Neck is supple. There is no elevated jugular venous pressure. HEART EXAMINATION: Heart S1, S2 normal. No murmur or gallop heard. CHEST EXAMINATION: Lungs are clear to auscultation and precussion. No chest wall tenderness is noted on palpation or with deep breathing. ABDOMEN: Soft, nontender. Bowel sounds are heard. No organomegaly noted. EXTREMITIES: 2+ peripheral pulses with no evidence of peripheral edema and no calf tenderness noted. NEUROLOGIC patient is awake, alert and oriented -3. . - Labs CBC & Chem 7: 10/01/16 05:58 09/30/16 04:18 Labs: Abnormal Lab Results - Last 24 Hours (Table) 10/01/16 Range/Units 05:58 Plt Count 113 L (150-450) k/uL Assessment and Plan Plan: Assessment and plan #1 status post PTCA and a subtotally occluded diagonal branch of the LAD, PTCA and stenting of the proximal LAD. #2 known history of coronary artery disease with prior bypass surgery #3 hyperlipidemia #4 hypertension #5 nicotine dependence Plan From cardiology's perspective, patient may be able to be discharged home today. We will make the patient an appointment to see Dr. Carolina in the office in one week. Patient has been provided prescriptions for all of his medications and educated regarding them as well. DNP note has been reviewed, I agree with a documented findings and plan of care. Patient was seen and examined.
== END 2016-10-01 13:00 | disposition home or self-care (01) | DRG 247 ==
LOC: EC 14:08 → 3OBS 15:56 → 6SEL 09-28 11:55 → 6ICU 09-29 13:02 → OBSVTOIN 09-30 08:11 → 6SEL 09-30 18:42
PROVIDERS: ADMIT Internal Medicine; ATTEND Internal Medicine
PROC: 4A023N7 Measurement of Cardiac Sampling and Pressure, Left Heart, Percutaneous Approach (ICD-10-PCS; 2016-09-28)
PROC: B3101ZZ Fluoroscopy of Thoracic Aorta using Low Osmolar Contrast (ICD-10-PCS; 2016-09-28)
PROC: B2111ZZ Fluoroscopy of Multiple Coronary Arteries using Low Osmolar Contrast (ICD-10-PCS; 2016-09-28)
PROC: B2151ZZ Fluoroscopy of Left Heart using Low Osmolar Contrast (ICD-10-PCS; 2016-09-28)
PROC: B2181ZZ Fluoroscopy of Left Internal Mammary Bypass Graft using Low Osmolar Contrast (ICD-10-PCS; 2016-09-28)
PROC: B2131ZZ Fluoroscopy of Multiple Coronary Artery Bypass Grafts using Low Osmolar Contrast (ICD-10-PCS; 2016-09-28)
PROC: B2101ZZ Fluoroscopy of Single Coronary Artery using Low Osmolar Contrast (ICD-10-PCS; 2016-09-29)
PROC: 027034Z Dilation of Coronary Artery, One Artery with Drug-eluting Intraluminal Device, Percutaneous Approach (ICD-10-PCS; principal; 2016-09-29 10:50)
PROC: 4A023N7 Measurement of Cardiac Sampling and Pressure, Left Heart, Percutaneous Approach (ICD-10-PCS; 2016-09-29 10:50)
PROC: B2131ZZ Fluoroscopy of Multiple Coronary Artery Bypass Grafts using Low Osmolar Contrast (ICD-10-PCS; 2016-09-29 10:50)
DX: I25.110 Atherosclerotic heart disease of native coronary artery with unstable angina pectoris (principal); I25.82 Chronic total occlusion of coronary artery; I10 Essential (primary) hypertension; I77.819 Aortic ectasia, unspecified site; I35.1 Nonrheumatic aortic (valve) insufficiency; E78.5 Hyperlipidemia, unspecified; F41.9 Anxiety disorder, unspecified; F32.9 Major depressive disorder, single episode, unspecified; E66.9 Obesity, unspecified; F17.210 Nicotine dependence, cigarettes, uncomplicated; Z82.49 Family history of ischemic heart disease and other diseases of the circulatory system; Z83.3 Family history of diabetes mellitus; Z95.1 Presence of aortocoronary bypass graft; Z79.899 Other long term (current) drug therapy; Z88.0 Allergy status to penicillin; Z71.6 Tobacco abuse counseling; Z53.8 Procedure and treatment not carried out for other reasons; Z95.5 Presence of coronary angioplasty implant and graft
CPT/HCPCS: 36415; 71020; 80048; 80053; 80061; 82550; 82553; 83735; 84100; 84484; 85025; 85610; 85730; 92921; 93005; 93306; 93308; 93455; 93567; 96365; 96366; 96374; 96376; 99291

== ENCOUNTER 2019-06-14 11:43 | Inpatient (IN) | payer BC ==
[2019-06-14] MEDS ORDERED: ASPIRIN 81 MG PO STA (12:01)
--- NOTE | 2019-06-14 12:08 | ED ---
General Adult HPI - General Chief complaint: Anxiety Stated complaint: not feeling right Time Seen by Provider: 06/14/19 11:52 Source: patient, RN notes reviewed Mode of arrival: ambulatory Limitations: no limitations - History of Present Illness Initial comments: This a 53-year-old male presents emergency Department chief complaint of not feeling right. Patient states that he feels that he has some chest pressure, congestion. He states he has no real URI symptoms. He states he just feels like something that he does admit that he is a 40 year history smoker. Patient states he also had carotid bypass and stent placement. Patient states he has no current chest pain but over the last few days she's had some chest pressure. Patient denies any leg pain, leg swelling. 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 He states that he does feel very shaky, workup at times he states almost that he has anxiety when he is having his symptoms. He does admit that he feels worse when he lays down. Denies any exertional symptoms. - Related Data Home Medications Medication Instructions Recorded Confirmed Ezetimibe [Zetia] 10 mg PO HS@1900 09/27/16 09/27/16 Metoprolol Succinate (ER) [Toprol 100 mg PO BID@0700,1900 09/27/16 09/27/16 XL] Previous Rx's Medication Instructions Recorded Aspirin EC [Ecotrin Low Dose] 81 mg PO DAILY #30 tablet. 10/01/16 Atorvastatin [Lipitor] 20 mg PO DAILY@0700 #30 tab 10/01/16 Clopidogrel [Plavix] 75 mg PO DAILY #30 tab 10/01/16 Lisinopril [Zestril] 40 mg PO DAILY #30 tab 10/01/16 Nicotine 14Mg/24Hr Patch [Habitrol] 1 patch TRANSDERM DAILY #30 patch 10/01/16 Nitroglycerin Sl Tabs [Nitrostat] 0.4 mg SUBLINGUAL Q5M PRN #25 tab 10/01/16 Allergies Allergy/AdvReac Type Severity Reaction Status Date / Time Penicillins Allergy Unknown Verified 06/14/19 11:51 Childhood Review of Systems ROS Statement: Those systems with pertinent positive or pertinent negative responses have been documented in the HPI. ROS Other: All systems not noted in ROS Statement are negative. Past Medical History Past Medical History: Coronary Artery Disease (CAD), Hyperlipidemia, Hypertens ion History of Any Multi-Drug Resistant Organisms: None Reported Past Surgical History: Coronary Bypass/CABG, Heart Catheterization With Stent Additional Past Surgical History / Comment(s): 5 vessel CABG- 04/2010; PRIDE to the LAD; SVG to the Distal LAD, Ramus, Distal Circ, and RCA Date of Last Stent Placement:: 09/29/16 Past Psychological History: Anxiety, Depression Smoking Status: Former smoker Past Alcohol Use History: None Reported Past Drug Use History: None Reported - Past Family History Mother Family Medical History: Coronary Artery Disease (CAD), Diabetes Mellitus, Hypertension Father Family Medical History: Coronary Artery Disease (CAD) General Exam Limitations: no limitations General appearance: alert, in no apparent distress Head exam: Present: atraumatic, normocephalic, normal inspection Eye exam: Present: normal appearance, PERRL, EOMI. Absent: scleral icterus, conjunctival injection, periorbital swelling ENT exam: Present: normal exam, normal oropharynx, mucous membranes moist Neck exam: Present: normal inspection. Absent: tenderness, meningismus, lymphadenopathy Respiratory exam: Present: normal lung sounds bilaterally. Absent: respiratory distress, wheezes, rales, rhonchi, stridor Cardiovascular Exam: Present: normal rhythm, tachycardia, normal heart sounds. Absent: systolic murmur, diastolic murmur, rubs, gallop, clicks GI/Abdominal exam: Present: soft, normal bowel sounds. Absent: distended, tenderness, guarding, rebound, rigid Extremities exam: Absent: pedal edema Neurological exam: Present: alert, oriented X3, CN II-XII intact Skin exam: Present: warm, dry, intact, normal color. Absent: rash Course Vital Signs 06/14/19 06/14/19 11:45 13:09 Temperature 98.7 F 99.7 F H Pulse Rate 103 H 82 Respiratory 20 16 Rate Blood Pressure 162/100 146/89 O2 Sat by Pulse 98 94 L Oximetry Medical Decision Making - Medical Decision Making 53-year-old male presented from for chest congestion, discomfort. Patient workup is negative this time though he still symptomatic. Patient will be admitted for cardiology evaluation. - Lab Data Result diagrams: 06/14/19 12:17 06/14/19 12:17 Lab Results 05/06/20 05/06/20 05/06/20 Range/Units 12:17 12:17 12:17 WBC 9.7 (3.8-10.6) k/uL RBC 5.46 (4.30-5.90) m/uL Hgb 16.7 (13.0-17.5) gm/dL Hct 49.3 (39.0-53.0) % MCV 90.3 (80.0-100.0) fL MCH 30.5 (25.0-35.0) pg MCHC 33.8 (31.0-37.0) g/dL RDW 13.5 (11.5-15.5) % Plt Count 143 L (150-450) k/uL Neutrophils % (Manual) 61 % Lymphocytes % (Manual) 30 % Monocytes % (Manual) 8 % Eosinophils % (Manual) 1 % Neutrophils # (Manual) 5.92 (1.3-7.7) k/uL Lymphocytes # (Manual) 2.91 (1.0-4.8) k/uL Monocytes # (Manual) 0.78 (0-1.0) k/uL Eosinophils # (Manual) 0.10 (0-0.7) k/uL Nucleated RBCs 0 (0-0) /100 WBC Manual Slide Review Performed PT 9.8 (9.0-12.0) sec INR 0.9 (<1.2) APTT 22.0 (22.0-30.0) sec D-Dimer 0.36 (<0.60) mg/L FEU Sodium 136 L (137-145) mmol/L Potassium 4.0 (3.5-5.1) mmol/L Chloride 104 (98-107) mmol/L Carbon Dioxide 21 L (22-30) mmol/L Anion Gap 11 mmol/L BUN 17 (9-20) mg/dL Creatinine 0.79 (0.66-1.25) mg/dL Est GFR (CKD-EPI)AfAm >90 (>60 ml/min/1.73 sqM) Est GFR (CKD-EPI)NonAf >90 (>60 ml/min/1.73 sqM) Glucose 130 H (74-99) mg/dL Calcium 9.4 (8.4-10.2) mg/dL Magnesium 2.0 (1.6-2.3) mg/dL Total Bilirubin 0.4 (0.2-1.3) mg/dL AST 43 (17-59) U/L ALT 48 (4-49) U/L Alkaline Phosphatase 69 (38-126) U/L Troponin I (0.000-0.034) ng/mL NT-Pro-B Natriuret Pep pg/mL Total Protein 7.3 (6.3-8.2) g/dL Albumin 4.6 (3.5-5.0) g/dL Coronavirus (PCR) (Not Detectd) 06/14/19 06/14/19 06/14/19 Range/Units 12:17 12:17 13:18 WBC (3.8-10.6) k/uL RBC (4.30-5.90) m/uL Hgb (13.0-17.5) gm/dL Hct (39.0-53.0) % MCV (80.0-100.0) fL MCH (25.0-35.0) pg MCHC (31.0-37.0) g/dL RDW (11.5-15.5) % Plt Count (150-450) k/uL Neutrophils % (Manual) % Lymphocytes % (Manual) % Monocytes % (Manual) % Eosinophils % (Manual) % Neutrophils # (Manual) (1.3-7.7) k/uL Lymphocytes # (Manual) (1.0-4.8) k/uL Monocytes # (Manual) (0-1.0) k/uL Eosinophils # (Manual) (0-0.7) k/uL Nucleated RBCs (0-0) /100 WBC Manual Slide Review PT (9.0-12.0) sec INR (<1.2) APTT (22.0-30.0) sec D-Dimer (<0.60) mg/L FEU Sodium (137-145) mmol/L Potassium (3.5-5.1) mmol/L Chloride (98-107) mmol/L Carbon Dioxide (22-30) mmol/L Anion Gap mmol/L BUN (9-20) mg/dL Creatinine (0.66-1.25) mg/dL Est GFR (CKD-EPI)AfAm (>60 ml/min/1.73 sqM) Est GFR (CKD-EPI)NonAf (>60 ml/min/1.73 sqM) Glucose (74-99) mg/dL Calcium (8.4-10.2) mg/dL Magnesium (1.6-2.3) mg/dL Total Bilirubin (0.2-1.3) mg/dL AST (17-59) U/L ALT (4-49) U/L Alkaline Phosphatase (38-126) U/L Troponin I <0.012 (0.000-0.034) ng/mL NT-Pro-B Natriuret Pep 40 pg/mL Total Protein (6.3-8.2) g/dL Albumin (3.5-5.0) g/dL Coronavirus (PCR) Not Detected (Not Detectd) Disposition Clinical Impression: Chest pain Disposition: ADMITTED IP TO THIS HOSP Referrals: Ernesto Hinojosa MD [Primary Care Provider] - 1-2 days
[2019-06-14 12:43] LABS: HCT 49.3 % (39.0-53.0); HGB 16.7 gm/dL (13.0-17.5); MCH 30.5 pg (25.0-35.0); MCHC 33.8 g/dL (31.0-37.0); MCV 90.3 fL (80.0-100.0); Mean Platelet Volume 8.8; Platelet Count 143 k/uL (150-450); RBC 5.46 m/uL (4.30-5.90); RDW 13.5 % (11.5-15.5); WBC 9.7 k/uL (3.8-10.6)
--- NOTE | 2019-06-14 12:47 | XR ---
EXAMINATION TYPE: XR chest 2V DATE OF EXAM: 06/14/2019 COMPARISON: Chest x-ray September 27, 2016 HISTORY: Chest pressure and pain for 2 days. TECHNIQUE: Frontal and lateral views of the chest are obtained. FINDINGS: Overlying sternal wires and mediastinal clips redemonstrated. There is chronic emphysematou s change without suspicious focal air space opacity, pleural effusion, or pneumothorax seen. The car diac silhouette size is stable and within normal limits. The osseous structures are intact. IMPRESSION: Chronic changes without new acute process.
[2019-06-14 12:49] LABS: AST 43 U/L (17-59); African American GFR (CKD) >90 (>60 ml/min/1.73 sqM); Albumin 4.6 g/dL (3.5-5.0); Alkaline Phosphatase 69 U/L (38-126); Blood Urea Nitrogen 17 mg/dL (9-20); Calcium 9.4 mg/dL (8.4-10.2); Carbon Dioxide 21 mmol/L (22-30); Glucose 130 mg/dL (74-99); Non-African American GFR(CKD) >90 (>60 ml/min/1.73 sqM); Total Bilirubin 0.4 mg/dL (0.2-1.3); Total Protein 7.3 g/dL (6.3-8.2)
[2019-06-14 12:52] LABS: D-Dimer 0.36 mg/L FEU (<0.60); INR 0.9 (<1.2); Prothrombin Time 9.8 sec (9.0-12.0)
[2019-06-14 13:10] LABS: Lymphocytes # (M) 2.91 k/uL (1.0-4.8); Monocytes # (M) 0.78 k/uL (0-1.0); Neutrophils # (M) 5.92 k/uL (1.3-7.7); Neutrophils % (M) 61 %; Nucleated Red Blood Cells 0 /100 WBC (0-0); Total Cells Counted 100
[2019-06-14 13:22] LABS: ALT 48 U/L (4-49); Anion Gap 11 mmol/L; Chloride 104 mmol/L (98-107); Sodium 136 mmol/L (137-145)
[2019-06-14] MEDS ORDERED: HEPARIN SODIUM,PORCINE 5,000 UNIT/ML 1 ML VIAL IV ONE (14:08)
[2019-06-14] MEDS: NITROGLYCERIN SL TABS 0.4 MG TAB SUBLINGUAL PRN ×2 (15:16→19:47)
[2019-06-14] MEDS: HEPARIN SOD,PORK IN 0.45% NACL 25,000 UNIT in 0.45% NACL 1 250ML.BAG IV SCH (15:17)
--- NOTE | 2019-06-14 17:11 | P.HPIM ---
History of Present Illness H&P Date: 06/14/19 Chief Complaint: Chest pain Vance Owens is a 53-year-old male who presented to [facility] emergency room with a chief complaint of chest pain. Patient describes episodes of pressure in the left side and mid chest without any radiation no diaphoresis no nausea or vomiting. Episode last few minutes, mostly when he is sitting down and not related to walking or activity. Patient was also feeling some chest congestion and shortness of breath Patient has a known history of coronary artery disease he had coronary artery bypass graft surgery in 2010, patient also had cardiac catheterization with PTCA of supple totally occluded diagonal branch of LAD and PTCA and stenting of proximal LAD. Patient has been doing well since then until recently. Patient used to smoke in the past he denies any recent smoking, he states that he has been taking his medications regularly. Past Medical History Past Medical History: Coronary Artery Disease (CAD), Hyperlipidemia, Hypertension History of Any Multi-Drug Resistant Organisms: None Reported Past Surgical History: Coronary Bypass/CABG, Heart Catheterization With Stent Additional Past Surgical History / Comment(s): 5 vessel CABG- 04/2010; PRIDE to the LAD; SVG to the Distal LAD, Ramus, Distal Circ, and RCA Date of Last Stent Placement:: 09/29/16 Past Psychological History: Anxiety, Depression Smoking Status: Former smoker Past Alcohol Use History: None Reported Additional Past Alcohol Use History / Comment(s): pt states he smokes about 6 cigs a day. Past Drug Use History: None Reported - Past Family History Mother Family Medical History: Coronary Artery Disease (CAD), Diabetes Mellitus, Hypertension Father Family Medical History: Coronary Artery Disease (CAD) Medications and Allergies Home Medications Medication Instructions Recorded Confirmed Type Ezetimibe [Zetia] 10 mg PO DAILY 09/27/16 06/14/19 History Metoprolol Succinate (ER) [Toprol 100 mg PO DAILY 09/27/16 06/14/19 History XL] Aspirin EC [Ecotrin Low Dose] 81 mg PO DAILY #30 tablet. 10/01/16 06/14/19 Rx Clopidogrel [Plavix] 75 mg PO DAILY #30 tab 10/01/16 06/14/19 Rx Lisinopril [Zestril] 20 mg PO DAILY 06/14/19 06/14/19 History Simvastatin [Zocor] 40 mg PO DAILY 06/14/19 06/14/19 History Allergies Allergy/AdvReac Type Severity Reaction Status Date / Time Penicillins Allergy Unknown Verified 06/14/19 14:30 Childhood Physical Exam Vitals: Vital Signs Temp Pulse Pulse Resp BP BP Pulse Ox 06/14/19 16:00 97.8 F 68 18 125/77 98 06/14/19 15:21 71 18 140/99 94 L 06/14/19 13:09 99.7 F H 82 16 146/89 94 L 06/14/19 11:45 98.7 F 103 H 20 162/100 98 Intake and Output 06/14/19 06/14/19 06/14/19 06:59 14:59 22:59 Other: Weight 117.934 kg In general patient is alert and oriented 3 in no apparent distress HEENT head normocephalic and atraumatic Neck is supple no JVD no goiter no lymphadenopathy Chest exam reveals a few scattered crackles no wheezing Cardiac exam reveals regular heart sounds S1 and S2 no gallops no murmurs Abdomen is soft nontender no organomegaly was normal bowel sounds Extremity exam reveals no edema no cyanosis or clubbing Neurological examination reveals no gross focal deficit Results CBC & Chem 7: 06/14/19 12:17 06/14/19 12:17 Labs: Abnormal Lab Results - Last 24 Hours (Table) 06/14/19 06/14/19 Range/Units 12:17 12:17 Plt Count 143 L (150-450) k/uL Sodium 136 L (137-145) mmol/L Carbon Dioxide 21 L (22-30) mmol/L Glucose 130 H (74-99) mg/dL Thrombosis Risk Factor Assmnt - Choose All That Apply Each Factor Represents 1 point: Age 41-60 years Thrombosis Risk Factor Assessment Total Risk Factor Score: 1 Thrombosis Risk Factor Assessment Level: Low Risk Assessment and Plan Plan: 1. Episodes of chest pain, patient is admitted to telemetry floor, serial EKGs and cardiac enzymes are ordered, cardiology consultation was requested, patient has extensive history of coronary artery disease as detailed above. 2. Low grade fever of 99.7, was feeling of chest congestion and shortness of breath, chest x-ray is clear, Covid 19 testing is negative, possible viral upper respiratory infection Will monitor closely. 3. Underlying history of hypertension, usually well controlled on medications, at this time blood pressure is elevated we will monitor closely and adjust medications if needed 4. History of hyperlipidemia maintained on simvastatin and Zetia, will check fasting lipid profile Patient is admitted to telemetry floor cardiology consultation requested Will follow closely
[2019-06-14] MEDS: EZETIMIBE 10 MG TAB PO SCH (17:23)
[2019-06-14] MEDS: LISINOPRIL 20 MG TAB PO SCH (17:23)
[2019-06-14] MEDS: METOPROLOL SUCCINATE (ER) 100 MG TAB.ER.24H PO SCH (17:23)
[2019-06-14] MEDS: CLOPIDOGREL 75 MG TAB PO SCH (17:24)
[2019-06-14] MEDS: ASPIRIN 81 MG PO SCH (17:24)
[2019-06-14] MEDS: ATORVASTATIN 20 MG TAB PO SCH (17:24)
[2019-06-14] MEDS: ACETAMINOPHEN TAB 500 MG TAB PO PRN (21:46)
[2019-06-15 04:17] LABS: Mean Platelet Volume 8.9; Platelet Count 121 k/uL (150-450)
[2019-06-15] MEDS: PANTOPRAZOLE 40 MG TABLET PO SCH (05:20)
[2019-06-15 06:48] LABS: Cholesterol 121 mg/dL (<200); HDL Cholesterol 39 mg/dL (40-60); LDL Cholesterol,Calculated 56 mg/dL (0-99); Triglycerides 128 mg/dL (<150)
[2019-06-15] MEDS: NITROGLYCERIN SL TABS 0.4 MG TAB SUBLINGUAL PRN (08:38)
[2019-06-15] MEDS: LISINOPRIL 20 MG TAB PO SCH (08:39)
[2019-06-15] MEDS: ATORVASTATIN 20 MG TAB PO SCH (08:39)
[2019-06-15] MEDS: EZETIMIBE 10 MG TAB PO SCH (08:39)
[2019-06-15] MEDS: CLOPIDOGREL 75 MG TAB PO SCH (08:39)
[2019-06-15] MEDS: ASPIRIN 81 MG PO SCH (08:39)
[2019-06-15] MEDS: HEPARIN SOD,PORK IN 0.45% NACL 25,000 UNIT in 0.45% NACL 1 250ML.BAG IV SCH (08:40)
[2019-06-15] MEDS ORDERED: ASPIRIN 325 MG TAB PO SCH (09:00)
--- NOTE | 2019-06-15 10:25 | P.CRDCN ---
History of Present Illness Consult date: 06/15/19 Requesting physician: Ernesto Hinojosa Consult reason: chest pain Chief complaint: chest pain History of present illness: D3-year-old gentleman who follows with Dr. Carolina in the office. He has a known history of coronary artery disease with prior bypass surgery in 2010 at which time he underwent a PRIDE to the LAD, saphenous vein graft to the LAD, saphenous to the ramus, saphenous to the circumflex, saphenous to the distal right coronary artery. In 2016 he underwent a PTCA of the diagonal branch. Patient also has history of hypertension, hyperlipidemia, nicotine dependence and anxiety. He presents to the hospital with symptoms of chest pressure, he initially thought he may have some mild congestion in his chest. He's been getting symptoms off and on. Pressure in the chest with associated shortness of breath and diaphoresis. Today the patient has had multiple episodes of chest pressure each time relieved with sublingual nitroglycerin. EKG shows a normal sinus rhythm with no acute changes. Chest x-ray shows chronic changes but nothing acute. Blood pressure 132/60 with a heart rate in the 70s 98% on room air. White blood cell count 9.7, hemoglobin 16.7, platelet count 121. D-dimer 0.3. Sodium 136, potassium 4.0, chloride 104, CO2 21, BUN 17, creatinine 0.7. Troponins are negative 3. Hansen virus not detected. Patient is currently on Ecotrin 81 mg daily, Lipitor 20 mg daily, Plavix 75 mg daily, Wednesday at 10 mg daily, lisinopril 20 mg daily and metoprolol 100 mg daily. At the time of my examination this morning he is currently chest pain- free. An echocardiogram with Doppler study has been ordered and patient has been recommended to undergo a cardiac catheterization, the risks and the benefits were explained to the patient in detail and he is willing to proceed. We will speak with Dr. Carolina regarding performing the cardiac catheteri zation today. Past Medical History Past Medical History: Coronary Artery Disease (CAD), Hyperlipidemia, Hypertension History of Any Multi-Drug Resistant Organisms: None Reported Past Surgical History: Coronary Bypass/CABG, Heart Catheterization With Stent Additional Past Surgical History / Comment(s): 5 vessel CABG- 04/2010; PRIDE to the LAD; SVG to the Distal LAD, Ramus, Distal Circ, and RCA Date of Last Stent Placement:: 09/29/16 Past Psychological History: Anxiety, Depression Smoking Status: Former smoker Past Alcohol Use History: None Reported Additional Past Alcohol Use History / Comment(s): pt states he smokes about 6 cigs a day. Past Drug Use History: None Reported - Past Family History Mother Family Medical History: Coronary Artery Disease (CAD), Diabetes Mellitus, Hypertension Father Family Medical History: Coronary Artery Disease (CAD) Medications and Allergies Home Medications Medication Instructions Recorded Confirmed Type Ezetimibe [Zetia] 10 mg PO DAILY 09/27/16 06/14/19 History Metoprolol Succinate (ER) [Toprol 100 mg PO DAILY 09/27/16 06/14/19 History XL] Aspirin EC [Ecotrin Low Dose] 81 mg PO DAILY #30 tablet. 10/01/16 06/14/19 Rx Clopidogrel [Plavix] 75 mg PO DAILY #30 tab 10/01/16 06/14/19 Rx Lisinopril [Zestril] 20 mg PO DAILY 06/14/19 06/14/19 History Simvastatin [Zocor] 40 mg PO DAILY 06/14/19 06/14/19 History Allergies Allergy/AdvReac Type Severity Reaction Status Date / Time Penicillins Allergy Unknown Verified 06/14/19 14:30 Childhood Physical Exam Vitals: Vital Signs Temp Pulse Pulse Resp BP BP Pulse Ox 06/15/19 08:43 73 115/80 06/15/19 08:30 98.6 F 78 18 149/91 94 L 06/14/19 22:19 71 18 132/65 98 06/14/19 20:00 98 F 69 18 122/61 96 06/14/19 16:00 97.8 F 68 18 125/77 98 06/14/19 15:21 71 18 140/99 94 L 06/14/19 13:09 99.7 F H 82 16 146/89 94 L 06/14/19 11:45 98.7 F 103 H 20 162/100 98 Intake and Output 06/14/19 06/15/19 06/15/19 22:59 06:59 14:59 Intake Total 64.488 89.015 61.077 Balance 64.488 89.015 61.077 Intake: IV 10 Invasive Line 1 10 Intake, IV Titration 64.488 89.015 51.077 Amount Heparin Sod,Pork in 0.45% 64.488 89.015 51.077 NaCl 25,000 unit In 0.45 % NaCl 1 250ml.bag @ 8.5 UNITS/KG/HR 10.024 mls/hr IV .Q24H [facility] Rx#: [id number] Other: # Voids 1 1 Weight 112.4 kg PHYSICAL EXAMINATION: GENERAL: 53-year-old gentleman in no acute distress at the time of my examination HEENT: Head is atraumatic, normocephalic. Pupils equal, round. Sclera anicteric. Conjunctiva are clear. Mucous membranes of the mouth are moist. Neck is supple. There is no elevated jugular venous pressure.No carotid bruit is heard. HEART EXAMINATION: Heart S1, S2 normal. No murmur or gallop heard. CHEST EXAMINATION: Lungs are clear to auscultation and precussion. No chest wall tenderness is noted on palpation or with deep breathing. ABDOMEN: Soft, nontender. Bowel sounds are heard. No organomegaly noted. EXTREMITIES: 2+ peripheral pulses with no evidence of peripheral edema and no calf tenderness noted. NEUROLOGIC patient is awake, alert and oriented X3. . Results 06/15/19 03:32 06/14/19 12:17 Cardiac Enzymes 06/14/19 06/14/19 06/14/19 Range/Units 12:17 12:17 18:39 AST 43 (17-59) U/L Troponin I <0.012 <0.012 (0.000-0.034) ng/mL 06/15/19 Range/Units 00:41 AST (17-59) U/L Troponin I <0.012 (0.000-0.034) ng/mL Coagulation 06/14/19 06/14/19 06/15/19 Range/Units 12:17 21:02 03:32 PT 9.8 (9.0-12.0) sec APTT 22.0 35.5 H 39.6 H (22.0-30.0) sec Lipids 06/15/19 Range/Units 03:32 Triglycerides 128 (<150) mg/dL Cholesterol 121 (<200) mg/dL HDL Cholesterol 39 L (40-60) mg/dL CBC 06/14/19 06/15/19 Range/Units 12:17 03:32 WBC 9.7 (3.8-10.6) k/uL RBC 5.46 (4.30-5.90) m/uL Hgb 16.7 (13.0-17.5) gm/dL Hct 49.3 (39.0-53.0) % Plt Count 143 L 121 L (150-450) k/uL Comprehensive Metabolic Panel 06/14/19 Range/Units 12:17 Sodium 136 L (137-145) mmol/L Potassium 4.0 (3.5-5.1) mmol/L Chloride 104 (98-107) mmol/L Carbon Dioxide 21 L (22-30) mmol/L BUN 17 (9-20) mg/dL Creatinine 0.79 (0.66-1.25) mg/dL Glucose 130 H (74-99) mg/dL Calcium 9.4 (8.4-10.2) mg/dL AST 43 (17-59) U/L ALT 48 (4-49) U/L Alkaline Phosphatase 69 (38-126) U/L Total Protein 7.3 (6.3-8.2) g/dL Albumin 4.6 (3.5-5.0) g/dL Current Medications Generic Name Dose Route Start Last Admin Trade Name Freq PRN Reason Stop Dose Admin Acetaminophen 500 mg 06/14/19 21:33 06/14/19 21:46 Tylenol Tab PO 500 mg Q6HR PRN Administration Fever and/ or Pain Aspirin 81 mg 06/14/19 16:30 06/15/19 08:39 Aspirin PO 81 mg DAILY [facility] Administration Atorvastatin Calcium 20 mg 06/14/19 16:30 06/15/19 08:39 Lipitor PO 20 mg DAILY [facility] Administration Clopidogrel Bisulfate 75 mg 06/14/19 16:30 06/15/19 08:39 Plavix PO 75 mg DAILY [facility] Administration Ezetimibe 10 mg 06/14/19 16:30 06/15/19 08:39 Zetia PO 10 mg DAILY [facility] Administration Heparin Sodium/Sodium Chloride 250 mls @ 10.024 mls/hr 06/14/19 14:15 06/15/19 08:40 25,000 unit/ Sodium Chloride IV 12.2 units/kg/hr .Q24H [facility] 14.388 mls/hr Administration Protocol 8.5 UNITS/KG/HR Lisinopril 20 mg 06/14/19 16:30 06/15/19 08:39 Zestril PO 20 mg DAILY [facility] Administration Metoprolol Succinate 100 mg 06/14/19 16:30 06/14/19 17:23 Toprol Xl PO Not Given DAILY [facility] Nitroglycerin 0.4 mg 06/14/19 14:08 06/15/19 08:38 Nitrostat SUBLINGUAL 0.4 mg Q5M PRN Administration Chest Pain Pantoprazole Sodium 40 mg 06/15/19 07:30 06/15/19 05:20 Protonix PO 40 mg [id number] [facility] Administration Intake and Output 06/14/19 06/15/19 06/15/19 22:59 06:59 14:59 Intake Total 64.488 89.015 61.077 Balance 64.488 89.015 61.077 Intake: IV 10 Invasive Line 1 10 Intake, IV Titration 64.488 89.015 51.077 Amount Heparin Sod,Pork in 0.45% 64.488 89.015 51.077 NaCl 25,000 unit In 0.45 % NaCl 1 250ml.bag @ 8.5 UNITS/KG/HR 10.024 mls/hr IV .Q24H [facility] Rx#: [id number] Other: # Voids 1 1 Weight 112.4 kg 06/15/19 03:32 06/14/19 12:17 EKG Interpretations (text) EKG shows a normal sinus rhythm with no acute changes. Assessment and Plan Plan: Assessment and plan #1 chest pressure with associated shortness of breath and diaphoresis, possible unstable angina. Troponins negative 3. EKG shows normal sinus rhythm with no acute changes. #2 known history of coronary artery disease with prior bypass surgery in 2010, subsequent angioplasty of the diagonal in 2017 #3 hypertension #4 hyperlipidemia #5 nicotine dependence #6 anxiety Plan We will obtain an echocardiogram with Doppler study. Patient has also been advised to undergo cardiac catheterization for more definitive diagnosis. The risks and the benefits were explained to the patient in detail, he is willing to proceed. We will speak with Dr. rodrigo Joe regarding performing a cardiac catheterization and further recommendations then will be made. DNP note has been reviewed, I agree with a documented findings and plan of care. Patient was seen and examined.
[2019-06-15] MEDS ORDERED: ATORVASTATIN 80 MG TAB PO STA (11:01)
[2019-06-15] MEDS ORDERED: NITROGLYCERIN SL TABS 0.4 MG TAB SUBLINGUAL PRN (11:01)
[2019-06-15] MEDS ORDERED: ALPRAZolam 0.25 MG TAB PO PRN (11:01)
[2019-06-15] MEDS ORDERED: SODIUM CHLORIDE 0.9% 1,000 ML in EMPTY BAG 1 BAG IV ONE (11:01)
[2019-06-15] MEDS ORDERED: ALPRAZolam 0.5 MG TAB PO PRN (11:01)
[2019-06-15] MEDS ORDERED: ASPIRIN 325 MG TAB PO STA (11:01)
[2019-06-15] MEDS ORDERED: ATORVASTATIN 20 MG TAB PO STA (11:13)
[2019-06-15] MEDS: METOPROLOL SUCCINATE (ER) 100 MG TAB.ER.24H PO SCH (11:17)
[2019-06-15] MEDS: ACETAMINOPHEN TAB 500 MG TAB PO PRN ×2 (11:18→17:49)
[2019-06-15 11:25] LABS: Glucose,Whole Blood 105 mg/dL (75-99)
--- NOTE | 2019-06-15 11:47 | ECHOF ---
Referral Reason:chest pain MEASUREMENTS -------- HEIGHT: 175.3 cm WEIGHT: 112.0 kg BP: 149/91 RVIDd: 2.5 cm (< 3.3) IVSd: 1.6 cm (0.6 - 1.1) LVIDd: 4.9 cm (3.9 - 5.3) LVPWd: 1.5 cm (0.6 - 1.1) IVSs: 1.9 cm LVIDs: 3.3 cm LVPWs: 1.8 cm LA Diam: 3.6 cm (2.7 - 3.8) LAESV Index (A-L): 15.14 ml/m Ao Diam: 3.7 cm (2.0 - 3.7) AV Cusp: 2.3 cm (1.5 - 2.6) MV EXCURSION: 23.427 mm (> 18.000) MV EF SLOPE: 114 mm/s (70 - 150) EPSS: 1.0 cm MV E Adiel: 0.66 m/s MV DecT: 251 ms MV A Adiel: 0.69 m/s MV E/A Ratio: 0.96 AR PHT: 1035 ms RAP: 5.00 mmHg RVSP: 36.00 mmHg FINDINGS -------- Sinus rhythm. This was a technically difficult study with suboptimal views. The left ventricular size is normal. There is moderate concentric left ventricular hypertrophy. O verall left ventricular systolic function is normal with, an EF between 55 - 60 %. The right ventricle is normal in size. Normal LA size by volume 22+/-6 ml/m2. The right atrium is normal in size. 5.0mg of Lumason was utilized for enhancement of images There is mild aortic valve sclerosis. There is mild aortic regurgitation. Mild mitral annular calcification present. Mild tricuspid regurgitation present. There is mild pulmonary hypertension. The right ventricular systolic pressure, as measured by Doppler, is 36.00mmHg. The pulmonic valve was not well visualized. The aortic root size is normal. IVC Not well visulized. There is no pericardial effusion. CONCLUSIONS -------- 1. Sinus rhythm. 2. This was a technically difficult study with suboptimal views. 3. The left ventricular size is normal. 4. There is moderate concentric left ventricular hypertrophy. 5. Overall left ventricular systolic function is normal with, an EF between 55 - 60 %. 6. The right ventricle is normal in size. 7. Normal LA size by volume 22+/-6 ml/m2. 8. The right atrium is normal in size. 9. 5.0mg of Lumason was utilized for enhancement of images 10. There is mild aortic valve sclerosis. 11. There is mild aortic regurgitation. 12. Mild mitral annular calcification present. 13. Mild tricuspid regurgitation present. 14. There is mild pulmonary hypertension. 15. The right ventricular systolic pressure, as measured by Doppler, is 36.00mmHg. 16. The pulmonic valve was not well visualized. 17. The aortic root size is normal. 18. IVC Not well visulized. 19. There is no pericardial effusion. ELECTRIC SERVICEMAN: Rina Gates RDCS
[2019-06-15] MEDS ORDERED: HEPARIN SODIUM,PORCINE 5,000 UNIT/ML 1 ML VIAL IV PRN (14:40)
[2019-06-15] MEDS ORDERED: HEPARIN SODIUM,PORCINE 5,000 UNIT/ML 1 ML VIAL IV ONE (14:40)
[2019-06-15] MEDS ORDERED: HEPARIN SOD,PORK IN 0.45% NACL 25,000 UNIT in 0.45% NACL 1 250ML.BAG IV SCH (14:45)
[2019-06-15] MEDS: NITROGLYCERIN OINT 1 INCH/GM PACKET TOPICAL SCH ×2 (15:02→22:54)
[2019-06-15 15:10] LABS: Basophils % (A) 0 %; Eosinophils # (A) 0.1 k/uL (0-0.7); Eosinophils % (A) 1 %; HCT 45.7 % (39.0-53.0); HGB 15.6 gm/dL (13.0-17.5); Lymphocytes % (A) 27 %; MCH 31.2 pg (25.0-35.0); MCHC 34.1 g/dL (31.0-37.0); MCV 91.5 fL (80.0-100.0); Monocytes # (A) 0.7 k/uL (0-1.0); Monocytes % (A) 7 %; Neutrophils # (A) 6.8 k/uL (1.3-7.7); Neutrophils % (A) 62 %; Platelet Count 136 k/uL (150-450); RDW 13.5 % (11.5-15.5)
[2019-06-15 15:25] LABS: Partial Thromboplastin Time 22.1 sec (22.0-30.0); Prothrombin Time 10.3 sec (9.0-12.0)
--- NOTE | 2019-06-15 16:36 | P.PN ---
Subjective Progress Note Date: 06/15/19 Vance Owens is a 53-year-old male who presented to [facility] emergency room with a chief complaint of chest pain. Patient describes episodes of pressure in the left side and mid chest without any radiation no diaphoresis no nausea or vomiting. Episode last few minutes, mostly when he is sitting down and not related to walking or activity. Patient was also feeling some chest congestion and shortness of breath Patient has a known history of coronary artery disease he had coronary artery bypass graft surgery in 2010, patient also had cardiac catheterization with PTCA of supple totally occluded diagonal branch of LAD and PTCA and stenting of proximal LAD. Patient has been doing well since then until recently. Patient used to smoke in the past he denies any recent smoking, he states that he has been taking his medications regularly. On 06/15/2019 patient was seen and examined on the medical floor, he is alert and oriented 3 in no apparent distress he is still having episodes of pain in the upper mid chest area, otherwise he denies any complaints there is no fever or chills no headache or dizziness no shortness of breath no cough no nausea or vomiting no abdominal pain no diarrhea and no urinary symptoms, he was evaluated by cardiology and the plan is to proceed was cardiac catheterization. Echocardiogram was done and revealed normal left ventricular ejection fraction. Objective - Vital Signs Vital signs: Vital Signs Temp 97.7 F 06/15/19 12:00 Pulse 94 06/15/19 12:00 Resp 16 06/15/19 12:00 BP 169/98 06/15/19 12:00 Pulse Ox 96 06/15/19 12:00 Intake & Output 06/14/19 06/15/19 06/15/19 18:59 06:59 18:59 Intake Total 153.503 632.006 Balance 153.503 632.006 Weight 117.934 kg 112.4 kg Intake: IV 244 Invasive Line 1 20 Sodium Chloride 0.9% 1, 224 000 ml In Empty Bag 1 bag @ 1 ML/KG/HR 112.4 mls/ hr IV .[id number] ONE Rx#: [id number] Intake, IV Titration 153.503 88.006 Amount Heparin Sod,Pork in 0.45% 153.503 88.006 NaCl 25,000 unit In 0.45 % NaCl 1 250ml.bag @ 8.5 UNITS/KG/HR 10.024 mls/hr IV .Q24H TIFFANI Rx#: [id number] Oral 300 Other: # Voids 1 - Exam In general patient is alert and oriented 3 in no apparent distress HEENT head normocephalic and atraumatic Neck is supple no JVD no goiter no lymphadenopathy Chest exam reveals a few scattered crackles no wheezing Cardiac exam reveals regular heart sounds S1 and S2 no gallops no murmurs Abdomen is soft nontender no organomegaly was normal bowel sounds Extremity exam reveals no edema no cyanosis or clubbing Neurological examination reveals no gross focal deficit - Labs CBC & Chem 7: 06/15/19 15:01 06/14/19 12:17 Labs: Abnormal Lab Results - Last 24 Hours (Table) 06/14/19 06/15/19 06/15/19 Range/Units 21:02 03:32 03:32 Plt Count 121 L (150-450) k/uL APTT 35.5 H 39.6 H (22.0-30.0) sec POC Glucose (mg/dL) (75-99) mg/dL HDL Cholesterol (40-60) mg/dL 06/15/19 06/15/19 06/15/19 Range/Units 03:32 11:23 11:41 Plt Count (150-450) k/uL APTT 38.7 H (22.0-30.0) sec POC Glucose (mg/dL) 105 H (75-99) mg/dL HDL Cholesterol 39 L (40-60) mg/dL Assessment and Plan Plan: 1. Episodes of chest pain, patient is admitted to telemetry floor, serial EKGs and cardiac enzymes are ordered, cardiology consultation was requested, patient has extensive history of coronary artery disease as detailed above. 2. Low grade fever of 99.7, was feeling of chest congestion and shortness of breath, chest x-ray is clear, Covid 19 testing is negative, possible viral upper respiratory infection Will monitor closely. 3. Underlying history of hypertension, usually well controlled on medications, at this time blood pressure is elevated we will monitor closely and adjust medications if needed 4. History of hyperlipidemia maintained on simvastatin and Zetia, will check fasting lipid profile Patient is admitted to telemetry floor cardiology consultation requested Will follow closely
[2019-06-16] MEDS: ACETAMINOPHEN TAB 500 MG TAB PO PRN ×2 (02:42→14:52)
[2019-06-16] MEDS ORDERED: ATORVASTATIN 80 MG TAB PO ONE (05:00)
[2019-06-16] MEDS ORDERED: ASPIRIN 325 MG TAB PO ONE (05:00)
[2019-06-16] MEDS: CLOPIDOGREL 75 MG TAB PO SCH (05:41)
[2019-06-16] MEDS: LISINOPRIL 20 MG TAB PO SCH (05:41)
[2019-06-16] MEDS: METOPROLOL SUCCINATE (ER) 100 MG TAB.ER.24H PO SCH (05:41)
[2019-06-16] MEDS: PANTOPRAZOLE 40 MG TABLET PO SCH (05:41)
[2019-06-16 06:14] LABS: Basophils % (A) 0 %; Eosinophils # (A) 0.2 k/uL (0-0.7); Eosinophils % (A) 2 %; HCT 46.3 % (39.0-53.0); HGB 15.5 gm/dL (13.0-17.5); Lymphocytes # (A) 2.8 k/uL (1.0-4.8); Lymphocytes % (A) 29 %; MCH 30.5 pg (25.0-35.0); MCHC 33.4 g/dL (31.0-37.0); MCV 91.4 fL (80.0-100.0); Mean Platelet Volume 8.5; Monocytes # (A) 0.7 k/uL (0-1.0); Monocytes % (A) 7 %; Neutrophils # (A) 5.5 k/uL (1.3-7.7); Neutrophils % (A) 57 %; Platelet Count 141 k/uL (150-450); RBC 5.07 m/uL (4.30-5.90); RDW 13.3 % (11.5-15.5); WBC 9.6 k/uL (3.8-10.6)
[2019-06-16] MEDS: NITROGLYCERIN OINT 1 INCH/GM PACKET TOPICAL SCH ×2 (07:37→15:48)
[2019-06-16] MEDS: EZETIMIBE 10 MG TAB PO SCH (07:38)
[2019-06-16] MEDS ORDERED: LIDOCAINE 1% INJ 10MG/ML (20 ML MDV) ONE (11:05)
[2019-06-16] MEDS ORDERED: VERAPAMIL 2.5 MG/ML 2 ML AMP ONE (11:05)
[2019-06-16] MEDS ORDERED: fentaNYL (PF) 50 MCG/ML 2 ML AMP ONE (11:18)
[2019-06-16] MEDS ORDERED: fentaNYL (PF) 50 MCG/ML 2 ML AMP IV ONE (11:23)
[2019-06-16] MEDS ORDERED: MIDAZOLAM 2 MG/2 ML VIAL IV ONE (11:23)
[2019-06-16] MEDS ORDERED: IV FLUID CONTINUATION 400 ML IV ONE (11:24)
[2019-06-16] MEDS ORDERED: LIDOCAINE 1% INJ 10MG/ML (20 ML MDV) SQ ONE (11:28)
[2019-06-16] MEDS ORDERED: RX INFO: IV CONTRAST WAS GIVEN 1 EACH MISC MISCELLANE PRN (11:56)
[2019-06-16] MEDS ORDERED: IOPAMIDOL-370 125ML BTL INJ ONE (11:58)
[2019-06-16] MEDS ORDERED: SODIUM CHLORIDE 0.9% 1,000 ML IV SCH (12:00)
--- NOTE | 2019-06-16 12:06 | P.CARDCATH ---
Date of Procedure: 06/16/19 Preoperative Diagnosis: Unstable angina, history of previous bypass surgery Postoperative Diagnosis: Stable coronary artery disease with patent grafts Procedure(s) Performed: Left heart catheterization without left ventriculography Description of Procedure: HISTORY: This is a 53-year-old gentleman with history of previous bypass surgery and stent placement was admitted to the hospital with recurrent chest pains. His cardiac enzymes are negative. Because of his a history of ongoing chest pains, a cardiac catheterization was recommended. Patient and family were explained the risks and benefits of the procedure. CONSENT:I have discussed the risks, benefits and alternative therapies for the above-mentioned procedure and for both sedation/analgesia as well as necessary blood product administration, if indicated, as they pertain to this patient. The patient has indicated understanding and acceptance of the risks and procedures discussed. PROCEDURE: Patient was brought to the lab in a fasting state. Patient was given some IV sedation. The right groin is infiltrated with lidocaine and right femoral artery was entered using Seldinger technique. A 6-Hungarian catheter was left in place and selective coronary arteriography including selective injection of the PRIDE graft and 2 vein grafts was performed. Patient tolerated the procedure well. Femoral angiogram was performed and Angio-Seal was applied for hemostasis. No immediate complications were noted and patient was transferred to [facility] in a stable condition Conscious Sedation: Versed 1mg Fentanyl 50 g Duration 19minutes HEMODYNAMICS: The aortic pressure is about 140/70. Left ventricular end- diastolic pressures were not measured SELECTIVE CORONARY ARTERIOGRAPHY: LEFT MAIN: Normal length and patent THE LEFT ANTERIOR DESCENDING CORONARY ARTERY:. Total occlusion in midportion THE LEFT CIRCUMFLEX AND IS CORONARY ARTERY: Diffuse disease with 80% stenosis in the distal portion which is chronic. Total occlusion of the OM branch THE RIGHT CORONARY ARTERY: Totally occluded The PRIDE graft to the LAD: This is patent throat its length and also at the anastomosis. The LAD is in caliber and free of occlusive disease. The vein graft to the RCA: This is patent throat its length and also distal anastomosis. The RCA is free of occlusive disease. Beyond the insertion site. He The vein graft to the OM branch: This is patent throat its length and also distal anastomosis. The OM branch is free of occlusive disease LEFT VENTRICULOGRAPHY:. Not performed FINAL IMPRESSION:, Stable coronary artery disease. Continue maximal medical therapy and risk factor modification PLAN: Maximum medical therapy PROGNOSIS: Fair
[2019-06-16 15:47] VITALS: BP 109/61
[2019-06-16 15:55] VITALS: PULSE 67; RESP 14; TEMP 97.6
--- NOTE | 2019-06-16 16:58 | P.DS ---
Providers Date of admission: 06/16/19 10:24 Expected date of discharge: 06/16/19 Attending physician: Ernesto Hinojosa Consults: 06/14/19 14:08 Consult Physician Urgent Consulting Provider: Larry Strauss Consult Reason/Comments: chest pain Do you want consulting provider notified?: Yes Primary care physician: Ernesto [facility] Course: Diagnoses on discharge: 1. Episodes of chest pain, patient is admitted to telemetry floor, serial EKGs and cardiac enzymes are ordered, cardiology consultation was requested, patient has extensive history of coronary artery disease as detailed above. Patient underwent cardiac catheterization on 06/16/[address] Carolina, there was no new or obstructive lesion in the coronary arteries, no angioplasty or stent placement was done, no further recommendation by cardiology. 2. Low grade fever of 99.7, was feeling of chest congestion and shortness of breath, chest x-ray is clear, Covid 19 testing is negative, possible viral upper respiratory infection Will monitor closely. 3. Underlying history of hypertension, usually well controlled on medications, at this time blood pressure is elevated we will monitor closely and adjust medications if needed 4. History of hyperlipidemia maintained on simvastatin and Zetia, will check fasting lipid profile Hospital course: Vance Owens is a 53-year-old male who presented to [facility] emergency room with a chief complaint of chest pain. Patient describes episodes of pressure in the left side and mid chest without any radiation no diaphoresis no nausea or vomiting. Episode last few minutes, mostly when he is sitting down and not related to walking or activity. Patient was also feeling some chest congestion and shortness of breath Patient has a known history of coronary artery disease he had coronary artery bypass graft surgery in 2010, patient also had cardiac catheterization with PTCA of supple totally occluded diagonal branch of LAD and PTCA and stenting of proximal LAD. Patient has been doing well since then until recently. Patient used to smoke in the past he denies any recent smoking, he states that he has been taking his medications regularly. On 06/16/2019 patient was seen and examined on the telemetry floor, he is alert and oriented 3 in no apparent distress there is no fever or chills no headache or dizziness no chest pain no shortness of breath no cough no nausea or vomiting no abdominal pain no diarrhea and no urinary symptoms, patient underwent cardiac catheterization today there was no change in the coronary arteries since previous cardiac catheterization several years ago, no angioplasty or stent placement were attempted, no further recommendation by cardiology, patient was feeling well and was asking to be discharged home, sublingual nitroglycerin and oral Protonix 40 mg by mouth daily were added to his regimen, he will be discharged home if cleared by cardiology, he will follow-up in our office within one week for further evaluation and treatment. Plan - Discharge Summary New Discharge Prescriptions: New Nitroglycerin Sl Tabs [Nitrostat] 0.4 mg SUBLINGUAL Q5M PRN tab PRN Reason: Chest Pain Pantoprazole [Protonix] 40 mg PO AC-BRKFST tablet.dr Roberto Metoprolol Succinate (ER) [Toprol XL] 100 mg PO DAILY Ezetimibe [Zetia] 10 mg PO DAILY Clopidogrel [Plavix] 75 mg PO DAILY #30 tab Aspirin EC [Ecotrin Low Dose] 81 mg PO DAILY #30 tablet. Simvastatin [Zocor] 40 mg PO DAILY Lisinopril [Zestril] 20 mg PO DAILY Discharge Medication List Ezetimibe [Zetia] 10 mg PO DAILY 09/27/16 [History] Metoprolol Succinate (ER) [Toprol XL] 100 mg PO DAILY 09/27/16 [History] Aspirin EC [Ecotrin Low Dose] 81 mg PO DAILY #30 tablet. 10/01/16 [Rx] Clopidogrel [Plavix] 75 mg PO DAILY #30 tab 10/01/16 [Rx] Lisinopril [Zestril] 20 mg PO DAILY 06/14/19 [History] Simvastatin [Zocor] 40 mg PO DAILY 06/14/19 [History] Nitroglycerin Sl Tabs [Nitrostat] 0.4 mg SUBLINGUAL Q5M PRN tab 06/16/19 [Rx] Pantoprazole [Protonix] 40 mg PO AC-BRKFST tablet. 06/16/19 [Rx] Follow up Appointment(s)/Referral(s): Ernesto Hinojosa MD [Primary Care Provider] - 1-2 days
== END 2019-06-16 19:09 | disposition home or self-care (01) | DRG 287 ==
LOC: EC 11:43 → 3SCARD 14:02 → OBSVTOIN 06-16 10:24
PROVIDERS: ADMIT Internal Medicine; ATTEND Internal Medicine
PROC: B2131ZZ Fluoroscopy of Multiple Coronary Artery Bypass Grafts using Low Osmolar Contrast (ICD-10-PCS; principal; 2019-06-16 13:30)
PROC: 4A023N7 Measurement of Cardiac Sampling and Pressure, Left Heart, Percutaneous Approach (ICD-10-PCS; principal; 2019-06-16 13:30)
DX: I25.110 Atherosclerotic heart disease of native coronary artery with unstable angina pectoris (principal); E78.5 Hyperlipidemia, unspecified; F17.210 Nicotine dependence, cigarettes, uncomplicated; F32.9 Major depressive disorder, single episode, unspecified; F41.9 Anxiety disorder, unspecified; I10 Essential (primary) hypertension; Z20.828 Contact with and (suspected) exposure to other viral communicable diseases; Z79.02 Long term (current) use of antithrombotics/antiplatelets; Z79.82 Long term (current) use of aspirin; Z79.899 Other long term (current) drug therapy; Z82.49 Family history of ischemic heart disease and other diseases of the circulatory system; Z83.3 Family history of diabetes mellitus; Z95.1 Presence of aortocoronary bypass graft; Z95.5 Presence of coronary angioplasty implant and graft; Z88.0 Allergy status to penicillin; I25.82 Chronic total occlusion of coronary artery
CPT/HCPCS: 36415; 71046; 80053; 80061; 83735; 83880; 84484; 85025; 85049; 85379; 85610; 85730; 87635; 93005; 93306; 93454; 96374; 99284

== ENCOUNTER 2020-02-19 16:45 | Emergency (ER) | payer BC, OTHER ==
[2020-02-19 16:51] VITALS: RESP 18; TEMP 98.7
--- NOTE | 2020-02-19 17:10 | ED ---
General Adult HPI - General Chief complaint: Recheck/Abnormal Lab/Rx Stated complaint: Sent from S Time Seen by Provider: 02/19/20 16:54 Source: patient Mode of arrival: ambulatory Limitations: no limitations - History of Present Illness Initial comments: This 54-year-old white male presents from the [facility] for complaints of an injury that he sustained on 02/02/2020. He states that at that time he fell after slipping on some ice and landed on his back and hit his head. He states that he fell very hard in this knocked the wind out of him. He was seen at [facility] emergency department. He had a computed tomography scan of his head and neck and this did not show any definitive acute abnormalities. There apparently was a questionable abnormality at C7 but less likely for fracture per radiology report. The patient had some pain in his upper and lower back at that time but no point tenderness over the vertebral and no imaging of the thoracic or lumbar spine was done. He was discharged and prescribed Flexeril and Naprosyn. This had been helping to some degree at the time but not as significant currently. He is still having recurrent headaches, neck pain, and upper and lower back pain. He complains of occasional blurry vision and occasional foot paresthesias. He states that the pain has been moderate in s everity and sometimes he just feels hazy with his mentation. No other complaints or modifying factors. Industrial hygiene very detailed report also reviewed as well as records from [facility] and [place]. He does relate that he is on Plavix and aspirin from previous cardiac disease and CABG. - Related Data Home Medications Medication Instructions Recorded Confirmed Ezetimibe [Zetia] 10 mg PO DAILY 09/27/16 02/19/20 Metoprolol Succinate (ER) [Toprol 100 mg PO DAILY 09/27/16 02/19/20 XL] Simvastatin [Zocor] 40 mg PO DAILY 06/14/19 02/19/20 lisinopriL [Zestril] 20 mg PO DAILY 06/14/19 02/19/20 Cyclobenzaprine [Flexeril] 5 mg PO TID PRN 02/19/20 02/19/20 Naproxen [Naprosyn] 500 mg PO BID PRN 02/19/20 02/19/20 Omeprazole [PriLOSEC] 20 mg PO DAILY PRN 02/19/20 02/19/20 Previous Rx's Medication Instructions Recorded Aspirin EC [Ecotrin Low Dose] 81 mg PO DAILY #30 tablet. 10/01/16 Clopidogrel [Plavix] 75 mg PO DAILY #30 tab 10/01/16 Nitroglycerin Sl Tabs [Nitrostat] 0.4 mg SUBLINGUAL Q5M PRN tab 06/16/19 Lidocaine 5% Patch [Lidoderm] 1 - 3 patch TOPICAL DAILY #30 patch 02/19/20 predniSONE [Deltasone] 20 mg PO BID #10 tab 02/19/20 Allergies Allergy/AdvReac Type Severity Reaction Status Date / Time Penicillins Allergy Unknown Verified 02/19/20 18:07 Childhood Review of Systems ROS Statement: Those systems with pertinent positive or pertinent negative responses have been documented in the HPI. ROS Other: All systems not noted in ROS Statement are negative. Past Medical History Past Medical History: Coronary Artery Disease (CAD), Hyperlipidemia, Hypertension History of Any Multi-Drug Resistant Organisms: None Reported Past Surgical History: Coronary Bypass/CABG, Heart Catheterization With Stent Additional Past Surgical History / Comment(s): 5 vessel CABG- 04/2010; PRIDE to the LAD; SVG to the Distal LAD, Ramus, Distal Circ, and RCA Date of Last Stent Placement:: 09/29/16 Past Psychological History: Anxiety, Depression Past Alcohol Use History: None Reported Past Drug Use History: None Reported - Past Family History Mother Family Medical History: Coronary Artery Disease (CAD), Diabetes Mellitus, Hypertension Father Family Medical History: Coronary Artery Disease (CAD) General Exam - General Exam Comments Initial Comments: GENERAL: The patient is well nourished and well hydrated. VITAL SIGNS: Heart rate, blood pressure, respiratory rate reviewed as recorded in nurse's notes. EYES: Pupils are round and reactive. Extraocular movements are intact. No conjunctival / lid redness or swelling. ENT: No external evidence of injury, swelling, or ecchymosis. Airway is patent. Throat is clear. NECK: Tenderness noted to the cervical spine diffusely both over the vertebral in the paracervical musculature. No swelling or evidence of injury. No subcutaneous emphysema. Trachea is midline. No thyroid mass. HEART: Regular rate and rhythm. Good peripheral pulses. LUNGS/CHEST: Breath sounds clear and equal bilaterally. No rales, rhonchi, or wheezes. No ecchymosis, subcutaneous emphysema, or tenderness. ABDOMEN: Abdomen soft without tenderness. No palpable masses or organomegaly. No peritoneal signs. No abdominal wall swelling or ecchymosis. EXTREMITIES: No extremity tenderness. Normal muscle tone and function. Tenderness noted to the thoracic and lumbar spine diffusely both to the paraspinal musculature and over the vertebrae. NEUROLOGIC: Sensation is grossly intact. Cranial nerve exam reveals face is symmetrical, tongue is midline, speech is clear. SKIN: No abrasions or ecchymosis is noted. No induration or masses noted. PSYCHIATRIC: Alert and oriented. Appropriate behavior and judgment. Limitations: no limitations Course Vital Signs 02/19/20 16:47 Temperature 98.7 F Pulse Rate 104 H Respiratory 18 Rate Blood Pressure 151/86 O2 Sat by Pulse 98 Oximetry Medical Decision Making - Medical Decision Making The patient was seen and examined. All diagnostics were reviewed. The x-rays of the thoracic and lumbar region are reviewed and does show some [id number] degenerative changes but no fracture or acute process. The computed tomography scan of the brain and cervical spine does not show any acute processes well. There is no intracranial hemorrhage noted. There is some mild arthritic changes of the cervical spine. Overall, it is felt as though he likely does have cervical, thoracic, and lumbar strain. He is likely having a tension-related headache. It is felt as though he is stable for discharge and to follow back up with the work clinic. A trial of Lidoderm patches as well as steroids will be given. It is also felt as though he may benefit from physical therapy. Close follow-up recommended and he barely has an appointment in 2 days. Disposition Clinical Impression: Head injury, Cervical strain, Strain of thoracic back region, Lumbar strain, Posttraumatic headache, Arthritis Disposition: HOME SELF-CARE Condition: Good Instructions (If sedation given, give patient instructions): Low Back Strain (ED), Thoracic Back Strain (ED), Cervical Strain (ED), Head Injury (ED), Arthritis (ED) Additional Instructions: Please follow-up with your industrial health clinic in the next 2 days. U also may take Tylenol in addition if needed for pain. Prescriptions: predniSONE [Deltasone] 20 mg PO BID #10 tab Lidocaine 5% Patch [Lidoderm] 1 - 3 patch TOPICAL DAILY #30 patch Is patient prescribed a controlled substance at d/c from ED?: No Referrals: Ernesto Hinojosa MD [Primary Care Provider] - 1-2 days Time of Disposition: 18:56
--- NOTE | 2020-02-19 17:51 | CT ---
EXAMINATION TYPE: CT brain samueline wo con DATE OF EXAM: 02/19/2020 COMPARISON: None available. HISTORY: Head and neck injury/pain status post fall. CT DLP: 67 mGycm Automated exposure control for dose reduction was used. TECHNIQUE: CT scan of the head and cervical spine are performed without contrast. FINDINGS: There is no acute intracranial hemorrhage, mass effect, or midline shift identified. The ventricles and sulci are within normal limits in size. The globes are intact and the visualized sin uses are clear. Cervical spine is visualized in its entirety from C1 through upper thoracic levels and demonstrates s atisfactory alignment without evidence of acute fracture or dislocation. Prevertebral soft tissue ap pears within normal limits. The C1-C2 articulation is unremarkable. There is moderate C5-C7 spondyl osis. IMPRESSION: 1. There is no acute fracture or dislocation evident in the cervical spine. 2. No acute intracranial hemorrhage, mass effect, or midline shift is seen.
--- NOTE | 2020-02-19 18:19 | XR ---
Result: History: Back pain status post fall. Comparison: None available. Technique: 3 views of the thoracic spine. 3 views of the lumbar spine. Findings: The bone mineralization is normal. Thoracic spine: There is no acute fracture or subluxation. The vertebral body heights are preserved throughout the i eliza thoracic spine. The vertebral elements are in anatomic alignment. There is multilevel mild to moderate disc height narrowing with small anterior endplate osteophytes. Lumbar spine: Images of the lumbar spine demonstrate 5 lumbar-type vertebrae. There is no acute fracture or sublux ation. The vertebral body heights are preserved throughout the imaged lumbar spine. The vertebral e lements are in anatomic alignment. There is moderate disc height narrowing and facet arthropathy at L4-S1. Impression: Thoracolumbar spondylosis without acute fracture or subluxation.
[2020-02-19 19:07] VITALS: BP 140/75; PULSE 88
== END 2020-02-19 19:06 | disposition home or self-care (01) ==
LOC: EC 16:45
DX: S09.90XA Unspecified injury of head, initial encounter (principal); S16.1XXA Strain of muscle, fascia and tendon at neck level, initial encounter; S29.012A Strain of muscle and tendon of back wall of thorax, initial encounter; S39.012A Strain of muscle, fascia and tendon of lower back, initial encounter; G44.309 Post-traumatic headache, unspecified, not intractable; M19.90 Unspecified osteoarthritis, unspecified site; I25.10 Atherosclerotic heart disease of native coronary artery without angina pectoris; E78.5 Hyperlipidemia, unspecified; I10 Essential (primary) hypertension; Z79.02 Long term (current) use of antithrombotics/antiplatelets; Z79.899 Other long term (current) drug therapy; Z88.0 Allergy status to penicillin; Z95.1 Presence of aortocoronary bypass graft; W00.0XXA Fall on same level due to ice and snow, initial encounter; Y92.69 Other specified industrial and construction area as the place of occurrence of the external cause; Y99.0 Civilian activity done for income or pay
CPT/HCPCS: 70450; 72070; 72100; 72125; 99284